=== PATIENT | male | born 1980 | race Caucasian/White ===

== ENCOUNTER 2022-04-27 11:03 | Outpatient (CLI) | payer OTHER, SELFPAY ==
--- NOTE | ~2022-04-27 | XR_ITS ---
XR lumbar spine 2-3V DATE: 04/27/2022 11:24 INDICATION: Back pain TECHNIQUE: AP, lateral, coned lateral lumbosacral views COMPARISON: None FINDINGS: Normal alignment of the lumbar spine. No fracture or bone destruction is evident. The inclu ded lower thoracic and lumbar pedicles are intact. No spondylolisthesis. There is multilevel degenerative disc disease, moderately severe at L2-3, moderate at the remaining l umbar interspaces. L5-S1 interspace is relatively well-preserved. The sacroiliac joints are intact. IMPRESSION: Multilevel degenerative disc disease, most pronounced at L2-3 Reviewed, dictated and finalized at location B.
[2022-04-27 11:22] LABS: Basophils Percent Auto 0.5 % (0.2-1.2); Eosinophils Absolute Auto 0.1 K/mm3 (0-0.3); Eosinophils Percent Auto 0.8 % (0-4.4); Hematocrit 43.1 % (42.0-52.0); Hemoglobin 14.5 g/dL (14.0-18.0); Immature Granulocyte Absolute 0.01 K/mm3 (0.00-0.031); Immature Granulocyte Percent A 0.2 % (0-0.5); Lymphocytes Absolute Auto 0.77 K/mm3 (0.9-3.2); Mean Corpuscular HGB Conc 33.6 g/dl (32-36); Mean Corpuscular Hemoglobin 29.9 pg (26-34); Mean Corpuscular Volume 88.9 fl (80-100); Mean Platelet Volume 8.9 fl (7.4-10.4); Monocytes Absolute Auto 0.4 K/mm3 (0.1-0.6); Monocytes Percent Auto 6.4 % (2.6-8.5); Neutrophils Absolute Auto 4.7 K/mm3 (1.3-6.7); Neutrophils Percent Auto 79.1 % (45.5-73.1); Platelet Count Result 182 k/mm3 (150-375); Red Blood Count 4.85 M/mm3 (4.6-6.20); Red Cell Distribution Width 13.6 % (11.5-14.5); White Blood Count 5.9 K/mm3 (4.5-10.0)
[2022-04-27 11:34] LABS: Alanine Aminotransferase 42 U/L (6-50); Albumin Level 5.1 g/dL (3.5-5.1); Alkaline Phosphatase 76 U/L (38-126); Anion Gap 7 mmol/L (8-16); Aspartate Amino Transferase 54 U/L (17-59); Bilirubin,Total 0.3 mg/dL (0.2-1.3); Blood Urea Nitrogen 13 mg/dL (9-20); Calcium 9.4 mg/dL (8.4-10.2); Carbon Dioxide 26 mmol/L (22-30); Chloride 109 mmol/L (98-107); Cholesterol 253 mg/dL (0-200); Estimated Glomerular Filt Rate > 60; Glucose 107 mg/dL (65-110); HDL Direct 66 mg/dL; Potassium 4.1 mmol/L (3.4-5.0); Sodium 142 mmol/L (137-145); Triglycerides 398 mg/dL (<150)
[2022-04-27 11:44] LABS: LDL Cholesterol Direct 102 mg/dL
[2022-04-27 12:13] LABS: Vitamin D 25 Hydroxy 37.3 ng/mL
== END 2022-04-27 11:04 | disposition home or self-care (01) ==
LOC: ANHLAB 11:05
PROVIDERS: PCP Internal Medicine; Visit Provider Clinical Nurse Specialist
DX: M54.9 Dorsalgia, unspecified (principal); I10 Essential (primary) hypertension; E78.00 Pure hypercholesterolemia, unspecified; F41.9 Anxiety disorder, unspecified; E55.9 Vitamin D deficiency, unspecified
CPT/HCPCS: 36415; 72100; 80053; 80061; 82306; 84443; 85025

== ENCOUNTER 2022-05-17 10:00 | Outpatient (RCR) | payer OTHER, SELFPAY ==
--- NOTE | 2022-05-17 11:15 | PTOPEVAL ---
PHYSICAL THERAPY INITIAL EVALUATION. Thank you for referring Elton Penaloza to [facility].? The patient is scheduled to be seen for therapy? 2x/week for 4 weeks. Please review, sign, date and return this plan of care SEBASTIAN. I agree with and certify that the following plan of care is medically necessary. Referring Physician Date Attending Provider: SILVER Randolph *PT Outpatient Evaluation Start: 05/17/22 Evaluation Information Diagnosis Back pain Onset chronic Subjective Information Pt states he has had back pain Query Text:As Reported By Patient/ since 7th grade. He states a Family doctor told him not to use his back as he gets older. He states his back has been consistent this 7th grade just recently started hurting more to where he sought out additional care. Pt has not tried any treatment prior to now. Pt states he is currently trying to file for disability . Pt states he has no energy to do anything other than sleep. He reports he cannot sit for longer than 20 mins before needing to stand up or move around. Diagnostic Tests X-Rays For This Problem Yes: DDD at L2-L3 Previous Treatments For This Problem no Pain Assessment Lower Back Reported Pain Level 6 Pain Description Radiating,Sharp,Stabbing Radicular Pain Location R buttock Greatest Pain Intensity 9 Pain Aggravating Factors Bending Pain Behaviors None Cervical and Lumbar ROM Lumbar ROM Lumbar Flexion (0-90) 50 Lumbar Flexion Active Floor Lumbar Extension (0-40) 30 Lateral Flexion able to reach lateral knee Query Text:Active Hands to: joint line on R, 2 in above on L Lateral Rotation Right (0-45) 45 Lateral Rotation Left (0-45) 45 Lumbar ROM 75% of Normal Lumbar Comments Erect posture from foward flexion, pt demonstrates L rotation during motion Lower Extremity Range of Motion General Lower Extremity Range of Motion WFL/Left,WFL/Right Lower Extremity Muscle Strength Testing Gross Lower Extremity Strength srinivas hip flexion 4+/5 srinivas hip abduction 4+/5 srinivas knee flexion/extension 5/5 Muscle Length Testing Pir
--- NOTE | 2022-05-25 12:27 | PCPTNOTE ---
Patient no showed to appointment this date. Patient called and voicemail left.
--- NOTE | 2022-05-30 08:57 | PCPTNOTE ---
Patient no showed to appointment this date. Called and spoke with patient who states he does not have a working car at this time to make appointments. Patient reports he has an MRI in May and does not want to waste his time at therapy. Patient agreed to be discharged and discharge note sent to doctor due to patient no wanting to continues.
--- NOTE | 2022-05-30 13:27 | PCPTNOTE ---
Attending Provider: SILVER Randolph Patient:Elton Penaloza Date of :1980 PHYSICAL THERAPY DISCHARGE SUMMARY Patient no showed his appointment today for the second time. He was called and he states he did not want to waste his time with therapy he is getting a MRI later this month and wants to see what it says. He would like to be discharged from skilled therapy services at this time. Patient?s initial visit was on 05/17/2022 10:00 and he had a total of 1 visits. Thank you for referring this patient to [facility]. Please review, sign, date and return this discharge summary SEBASTIAN. I have been updated about the patient's current status and I agree with discharge from the above service at this time. Referring Physician Date
== END 2022-05-30 12:01 | disposition home or self-care (01) ==
LOC: ANHGOSHPT 10:00
PROVIDERS: PCP Internal Medicine; Visit Provider Clinical Nurse Specialist
DX: M54.9 Dorsalgia, unspecified (principal)
CPT/HCPCS: 97112; 97140; 97161

== ENCOUNTER 2022-09-13 11:46 | Emergency (ER) | payer OTHER, SELFPAY ==
[2022-09-13 11:47] VITALS: BP 200/110; PULSE 104; RESP 16; TEMP 36.9; O2SAT 100
--- NOTE | 2022-09-13 12:15 | ED.ANIMALBIT ---
HPI - Animal Bite General Chief Complaint: Animal Bite Stated Complaint: dog bite Time Seen by Provider: 09/13/22 12:13 History of Present Illness HPI narrative: Pt presents with dog bite to right hand two days ago. Pt denies fever. Pt not sure of last tetanus. Pt says hand has gotten more swollen and red over the last two days. Animal: dog (rottweiller) Mechanism: bite Location - Extremities: Right: hand Related Data Home Medications Medication Instructions Recorded Confirmed dextroamphetamine-amphetamine 10 10 mg PO DAILY 09/21/20 07/14/22 mg tablet (Adderall) Allergies Allergy/AdvReac Type Severity Reaction Status Date / Time No Known Allergies Allergy Verified 09/13/22 11:49 Review of Systems Review of Systems: All systems reviewed & are unremarkable except as noted in HPI and below PMFSH Past Medical History Medical History Generalized hyperhidrosis Hypercholesterolemia Hypertension Surgical History Surgical History H/O removal of cyst 2006 Family History Family History Mother Patient's mother is in good health Father Patient's father is in good health Grandparent Breast cancer Lung cancer Social History Social History (Updated 07/14/22 @ 11:38 by Dipti North CMA) Smoking packs per day: 0.75 Smoking cigarettes per day: 15.0 Smoking status: Current every day smoker Alcohol intake: current Alcohol use details: Occasionally Exam Const: General: healthy appearing Nutritional Appearance: well nourished Orientation/consciousness: patient oriented x3 Limitations: no limitations Resp: Effort & Inspection: normal respiratory effort Auscultation: clear to auscultation bilaterally GI: GI Palp: Yes Soft to palpation Auscultation: normal bowel sounds Skin: Other: healing wound over MCP right 2nd with mild selling and erythema no drainage Neuro: General: patient oriented x3 Cranial nerves: Yes Nystagmus not present Speech: normal speech Extrem: General: normal to inspection and no clubbing, cyanosis or edema Other: see above Psych: Mental Status: mental status grossly normal Affect: normal affect Attitude: cooperative Course Vital Signs Vital signs: Vital Signs Temperature 98.5 F 11/16/22 11:47 Pulse Rate 104 H 09/13/22 11:47 Respiratory Rate 16 09/13/22 11:47 Blood Pressure 200/110 H 09/13/22 11:47 Pulse Oximetry 100 09/13/22 11:47 Temperature 98.5 F 09/13/22 11:47 Pulse Rate 104 H 09/13/22 11:47 Respiratory Rate 16 09/13/22 11:47 Blood Pressure 200/110 H 09/13/22 11:47 Pulse Oximetry 100 09/13/22 11:47 Discharge Plan Discharge Clinical Impression: Dog bite of dorsum of hand Patient Disposition: Home, Self-Care Condition: Stable Instructions: Antibiotic Form, Animal Bite (ED) Prescriptions: New amoxicillin-pot clavulanate 875-125 mg tablet 1 tablet PO Q12H Qty: 20 0RF No Action omeprazole 20 mg capsule,delayed release(DR/EC) 20 mg PO DAILY Qty: 90 0RF dextroamphetamine-amphetamine [Adderall] 10 mg tablet 10 mg PO DAILY Rx Instructions: Take 15mg in AM and 10 in PM sildenafil 50 mg tablet 50 mg PO DAILY PRN (Reason: sexual activity) Qty: 30 3RF Rx Instructions: administer 30 minutes to 4 hours before activity. Do not exceed 100 mg in a 24 hour period. sertraline 100 mg tablet See Rx Instructions .ROUTE .COMPLEX Qty: 90 0RF Dose Instruction: TAKE 1 TABLET BY MOUTH DAILY Rx Instructions: TAKE 1 TABLET BY MOUTH DAILY losartan-hydrochlorothiazide 100-12.5 mg tablet See Rx Instructions .ROUTE .COMPLEX Qty: 30 0RF Dose Instruction: TAKE 1 TABLET BY MOUTH EVERY DAYNEED LABS DONE FOR FURTHER REFILLS Rx Instructions: TAKE 1 TABLET BY MOUTH EVERY DAY
[2022-09-13] MEDS: TETANUS,DIPHTHERIA,AC PERTUSSIS ADULT (0.5 ML) BOOSTRIX IM (12:39)
== END 2022-09-13 12:42 | disposition home or self-care (01) ==
PROVIDERS: Emergency Provider Emergency Medicine; PCP Internal Medicine
DX: S61.451A Open bite of right hand, initial encounter (principal); W54.0XXA Bitten by dog, initial encounter; F17.210 Nicotine dependence, cigarettes, uncomplicated; Z23 Encounter for immunization
CPT/HCPCS: 90471; 90715; 99283

== ENCOUNTER 2023-03-16 09:33 | Emergency (ER) | payer OTHER, SELFPAY ==
[2023-03-16] VITALS (13 sets, daily range): BP systolic 116–140; BP diastolic 78–97; PULSE 58–84; RESP 13–20; TEMP 36.7; O2SAT 94–100
--- NOTE | ~2023-03-16 | XR_ITS ---
EXAMINATION: XR chest 2V 03/16/2023 10:20 INDICATION: Dyspnea. Right-sided chest pain. PROCEDURE: 2 view chest COMPARISON: 08/15/2015 FINDINGS: The lungs are clear. The cardiomediastinal silhouette is within normal limits. There are no pleural effusions. There is no pneumothorax suspected. IMPRESSION: 1: NO ACUTE CARDIOPULMONARY DISEASE. Reviewed, dictated and finalized at location B.
--- NOTE | 2023-03-16 09:48 | ECG_ITS ---
Measurements Intervals [place] Rate: 71 P: 79 OR: 149 QRS: 23 QRSD: 94 T: 22 QT: 378 QTc: 411 Interpretive Statements SINUS RHYTHM NORMAL ECG NO PREVIOUS ECG AVAILABLE FOR COMPARISON Electronically Signed On 03-16-2023 11:28:17 CDT by Gallo Wright D.O.
[2023-03-16 10:23] LABS: Basophils Percent Auto 0.6 % (0.2-1.2); Eosinophils Absolute Auto 0.1 K/mm3 (0-0.3); Eosinophils Percent Auto 1.9 % (0-4.4); Hematocrit 30.7 % (42.0-52.0); Hemoglobin 8.6 g/dL (14.0-18.0); Immature Granulocyte Absolute 0.02 K/mm3 (0.00-0.031); Immature Granulocyte Percent A 0.4 % (0-0.5); Lymphocytes Absolute Auto 1.37 K/mm3 (0.9-3.2); Lymphocytes Percent Auto 26.2 % (18.3-44.2); Mean Corpuscular Hemoglobin 19.8 pg (26-34); Mean Corpuscular Volume 70.6 fl (80-100); Mean Platelet Volume 9.3 fl (7.4-10.4); Monocytes Absolute Auto 0.4 K/mm3 (0.1-0.6); Monocytes Percent Auto 7.5 % (2.6-8.5); Neutrophils Absolute Auto 3.3 K/mm3 (1.3-6.7); Neutrophils Percent Auto 63.4 % (45.5-73.1); Platelet Count Result 197 k/mm3 (150-375); Red Blood Count 4.35 M/mm3 (4.6-6.20); Red Cell Distribution Width 19.6 % (11.5-14.5); White Blood Count 5.2 K/mm3 (4.5-10.0)
[2023-03-16 10:44] LABS: Troponin I < 0.012 ng/mL (0.000-0.034)
[2023-03-16 10:49] LABS: Platelet Estimate Adequate (Adequate)
[2023-03-16 10:56] LABS: Anisocytosis 1+ (NORMAL)
[2023-03-16 10:57] LABS: Hypochromasia 1+ (NORMAL); Schistocytes None Seen (NORMAL)
--- NOTE | 2023-03-16 11:00 | ED.GENADULT ---
HPI - General Adult General Chief complaint: Shortness of Breath/Dyspnea Stated complaint: cough, chest pain Time Seen by Provider: 03/16/23 10:26 History of Present Illness HPI narrative: Patient is a 42-year-old male with a history of smoking and hypertension here due to chest pains, cough, difficulty breathing for the past 2 months. Patient believed it was a chest cold at first because he has had a productive cough of white sputum. The symptoms have persisted, he contacted his primary care doctor to make an appointment but he is unable to get into Sunday and he did not want a wait until then. He denies having history of COPD or asthma. No fevers, chills, leg swelling, weakness or lightheadedness, syncope. Related Data Home Medications Medication Instructions Recorded Confirmed dextroamphetamine-amphetamine 10 10 mg PO DAILY 09/21/20 07/14/22 mg tablet (Adderall) Allergies Allergy/AdvReac Type Severity Reaction Status Date / Time No Known Allergies Allergy Verified 09/13/22 11:49 Review of Systems Review of Systems: Gen.: Denies fevers or chills Eyes: Denies eye pain or visual change ENT: Denies congestion Respiratory: Reports cough and shortness of breath CV: Reports chest pain GI: Denies abdominal pain nausea, emesis or diarrhea denies burning, urgency, frequency or hematuria Musculoskeletal: Denies back pain or muscle pain Neuro: Denies numbness, tingling, weakness or focal weakness Skin: Denies rash Except as documented, all other systems reviewed and negative [facility] Past Medical History Medical History Generalized hyperhidrosis Hypercholesterolemia Hypertension Surgical History Surgical History H/O removal of cyst 2006 Family History Family History Mother Patient's mother is in good health Father Patient's father is in good health Grandparent Breast cancer Lung cancer Social History Social History (Updated 07/14/22 @ 11:38 by Dipti Norht CMA) Smoking packs per day: 0.75 Smoking cigarettes per day: 15.0 Smoking status: Current every day smoker Alcohol intake: current Alcohol use details: Occasionally Exam Narrative: APPEARANCE: Well appearing, no pain in distress, well-nourished. Head: Normocephalic and atraumatic. EYES: PERRLA/EOMI, conjunctivae clear NOSE: No nasal drainage EARS: External ear normal in appearance THROAT: Oropharynx is clear. Mucous membranes are moist. NECK: Supple. No adenopathy, no masses. RESPIRATORY: Inspiratory and expiratory wheezing in bilateral lower lobes. Airway patent, respirations nonlabored. Clear to auscultation bilaterally, no rales, rhonchi, wheezing. CARDIOVASCULAR: Regular rate and rhythm without murmurs, rubs, or gallops. : There are numerous external hemorrhoids on exam stools not grossly bloody ABDOMINAL: Normoactive bowel sounds. Soft, nontender, nondistended. No rebound tenderness or guarding. MUSCULOSKELETAL: Reproducible chest pain along the left anterior chest wall. Extremities are warm and well-perfused. Moves all extremities well. No edema. NEURO: Normal speech. No focal neurologic deficits. SKIN: Skin is warm and dry. No rashes. PSYCHIATRIC: Normal affect/mood.. Course Vital Signs Vital signs: Vital Signs Temperature 98.0 F 03/16/23 09:41 Pulse Rate 76 03/16/23 09:41 Respiratory Rate 16 03/16/23 09:41 Blood Pressure 116/97 H 03/16/23 09:41 Pulse Oximetry 95 03/16/23 09:41 Oxygen Delivery Room Air 03/16/23 09:41 Temperature 98.0 F 03/16/23 09:41 Pulse Rate 71 03/16/23 11:30 Respiratory Rate 20 03/16/23 10:45 Blood Pressure 140/78 03/16/23 10:01 Pulse Oximetry 95 03/16/23 11:30 Oxygen Delivery Room Air 03/16/23 09:41 Medical Decision Making [facility] Narrative Medica
[2023-03-16] MEDS: IPRATROPIUM BR 0.02% INH SOLN 0.5 MG/2.5 ML VIAL INHALATION (11:07)
[2023-03-16] MEDS: LEVALBUTEROL NEB 1.25 MG/3 ML INHALATION (11:08)
[2023-03-16 11:34] LABS: Alanine Aminotransferase 22 U/L (6-50); Albumin Level 4.4 g/dL (3.5-5.1); Alkaline Phosphatase 68 U/L (38-126); Anion Gap 7 mmol/L (8-16); Aspartate Amino Transferase 45 U/L (17-59); Bilirubin,Total 0.6 mg/dL (0.2-1.3); Blood Urea Nitrogen 18 mg/dL (9-20); Calcium 8.9 mg/dL (8.4-10.2); Carbon Dioxide 24 mmol/L (22-30); Chloride 105 mmol/L (98-107); Estimated CRCL calculation 108 ml/min; Estimated Glomerular Filt Rate > 60; Glucose 98 mg/dL (65-110); Potassium 4.3 mmol/L (3.4-5.0); Sodium 136 mmol/L (137-145)
[2023-03-16 11:40] LABS: D Dimer 0.37 ug/mL (<0.48)
== END 2023-03-16 12:17 | disposition home or self-care (01) ==
PROVIDERS: Emergency Medicine; Emergency Provider Physician Assistant; PCP Internal Medicine
DX: D64.9 Anemia, unspecified (principal); R06.2 Wheezing; I10 Essential (primary) hypertension; E78.00 Pure hypercholesterolemia, unspecified; F17.210 Nicotine dependence, cigarettes, uncomplicated
CPT/HCPCS: 36415; 71046; 80053; 84484; 85025; 85380; 93005; 94640; 99284

== ENCOUNTER 2023-03-22 11:58 | Outpatient (CLI) | payer OTHER, SELFPAY ==
--- NOTE | ~2023-03-22 | CT_ITS ---
EXAMINATION: CTA chest PE protocol DATE: 03/22/2023 12:32 CDT INDICATION: Chest pain TECHNIQUE: Computed tomographic angiography (CTA) of the chest was performed with 100 mL Omnipaque-35 0 intravenous contrast. The dose-length product was 1761.15 mGy-cm. Maximum intensity projection 3D-r econstructions of the aorta and other arteries were constructed by the technologist on a separate wor kstation. Automated exposure control and iterative reconstruction technique were employed. COMPARISON: None. FINDINGS: There are small filling defects in the right upper, no focal airspace consolidation. No pne umothorax. No endobronchial lesions. No suspicious pulmonary nodules or masses. Left upper and lower lobe segmental and subsegmental pulmonary arteries, consistent with pulmonary embolism, small thrombu s burden. Heart size normal. No thoracic lymphadenopathy. No significant pleural or pericardial effus ion. IMPRESSION: 1. Small bilateral segmental and subsegmental pulmonary embolism, small thrombus burden. Reviewed, dictated and finalized at location L. IMPRESSION: 1. Small bilateral segmental and subsegmental pulmonary embolism, small thrombu s burden.
== END 2023-03-22 11:59 | disposition home or self-care (01) ==
PROVIDERS: PCP Internal Medicine; Visit Provider Nurse Practitioner
DX: I26.94 Multiple subsegmental thrombotic pulmonary emboli without acute cor pulmonale (principal)
CPT/HCPCS: 71275; Q9967

== ENCOUNTER 2023-03-23 11:20 | Inpatient (IN) | payer OTHER, SELFPAY ==
[2023-03-23] VITALS (19 sets, daily range): BP systolic 123–148; BP diastolic 68–86; PULSE 64–105; RESP 16–44; TEMP 36.2–36.6; O2SAT 93–100; BMI 31.4
--- NOTE | ~2023-03-23 | US_ITS ---
EXAMINATION: US venous doppler [facility] DATE: 03/23/2023 23:20 INDICATION: Chest pain. Acute pulmonary emboli. TECHNIQUE: Grayscale ultrasound images without and with compression and Doppler ultrasound images of the bilateral lower extremity veins were obtained. COMPARISON: None. FINDINGS: The visualized portions of right common femoral vein, profunda (deep) femoral vein, femoral vein, pop liteal vein, peroneal veins, posterior tibial veins, and greater saphenous vein outflow are patent. The visualized portions of left common femoral vein, profunda femoral vein, femoral vein, popliteal v ein, peroneal veins, posterior tibial veins, and greater saphenous vein outflow are patent. IMPRESSION: 1. No deep venous thrombosis. Reviewed, dictated and finalized at location A.
--- NOTE | 2023-03-23 11:31 | ECG_ITS ---
Measurements Intervals [place] Rate: 77 P: 68 NM: 155 QRS: 14 QRSD: 86 T: 22 QT: 341 QTc: 387 Interpretive Statements SINUS RHYTHM BASELINE ARTIFACT- I, II, V4-V6 NORMAL ECG COMPARED TO ECG 03/16/2023 10:03:04 NO SIGNIFICANT CHANGES Electronically Signed On 03-23-2023 12:32:59 CDT by Gallo Wright D.O.
--- NOTE | 2023-03-23 12:21 | ED.RECABL ---
HPI - Recheck/Abnormal Lab/Rx General Chief Complaint: Recheck/Abnormal Lab/Rx <Swati Clark PA-C - Last Filed: 03/23/23 19:56> Stated Complaint: blood clot in lung <ANIKET Gonzáles Last Filed: 03/23/23 19:56> Time Seen by Provider: 03/23/23 12:10 <ANIKET Gonzáles Last Filed: 03/23/23 19:56> Source: patient and old records reviewed <ANIKET Gonzáles Last Filed: 03/23/23 19:56> Mode of arrival: ambulatory <ANIKET Gonzáles Last Filed: 03/23/23 19:56> Limitations: no limitations <ANIKET Gonzáles Last Filed: 03/23/23 19:56> History of Present Illness HPI narrative: Patient is a 42-year-old male who presents to the ED with report of abnormal CT. Patient reports having issues with intermittent shortness of breath, worse with exertion and movements for the last 1 year. He also reports having daily chest pain, also worse with exertion/coughing for the last few months. He was seen in the ED here on 03/16 and pain was thought to be related to a COPD exacerbation. Symptoms improved with breathing treatments. Patient followed up with his primary care doctor who sent him for an outpatient CTA of the chest yesterday. Imaging resulted showing bilateral PEs. Patient was then referred here for further evaluation. Patient denies Hx of PEs or other blood clots. Denies pain or swelling in lower extremities. Denies recent immobilization, long distance travel, surgeries. Denies recent cough or cold symptoms, previous COVID. Denies family history of blood clots. <ANIKET Gonzáles Last Filed: 03/23/23 19:56> Related Data Home Medications: Home Medications Medication Instructions Recorded Confirmed dextroamphetamine-amphetamine 10 10 mg PO DAILY 09/21/20 03/23/23 mg tablet (Adderall) buspirone 10 mg tablet 10 mg PO DAILY 03/22/23 03/23/23 albuterol sulfate 90 mcg/actuation 1 inh inhalation QID PRN Dyspnea 03/23/23 03/23/23 aerosol inhaler losartan 100 12.5 - 100 tablet PO DAILY 03/23/23 03/23/23 mg-hydrochlorothiazide 12.5 mg tablet <Swati Clark PA-C - Last Filed: 03/23/23 19:56> Allergies/Adverse Reactions: Allergies Allergy/AdvReac Type Severity Reaction Status Date / Time No Known Allergies Allergy Verified 03/22/23 10:37 <Swati Clark PA-C - Last Filed: 03/23/23 19:56> Review of Systems Review of Systems: CONSTITUTIONAL: Denies fever, chills, or sweats. EYES: Denies visual changes, redness, or discharge. ENT: Denies rhinorrhea, congestion, sore throat. CARDIOVASCULAR: See HPI. RESPIRATORY: See HPI. GASTROINTESTINAL: Denies abdominal pain, nausea, vomiting, or diarrhea. MUSCULOSKELETAL: See HPI. NEUROLOGIC: Denies headache, numbness, or weakness. <Swati Clark PA-C - Last Filed: 03/23/23 19:56> All systems reviewed & are unremarkable except as noted in HPI and below <Swati Clark PA-C - Last Filed: 03/23/23 19:56> [facility] Past Medical History Medical History: Medical History Chronic GERD Depression with anxiety Generalized hyperhidrosis Hypercholesterolemia Hypertension <Swati Clark PA-C - Last Filed: 03/23/23 19:56> Surgical History Surgical History: Surgical History H/O removal of cyst 2006 S/P hemorrhoidectomy <ANIKET Gonzáles Last Filed: 03/23/23 19:56> Family History Family History: Family History Mother Patient's mother is in good health Father Patient's father is in good health Grandparent Breast cancer Lung cancer <Swati Clark PA-C - Last Filed: 03/23/23 19:56> Social History Social History: Social History Social History: li
[2023-03-23 12:28] LABS: Basophils Percent Auto 0.3 % (0.2-1.2); Eosinophils Absolute Auto 0.1 K/mm3 (0-0.3); Hematocrit 31.4 % (42.0-52.0); Hemoglobin 8.9 g/dL (14.0-18.0); Immature Granulocyte Absolute 0.03 K/mm3 (0.00-0.031); Immature Granulocyte Percent A 0.4 % (0-0.5); Lymphocytes Absolute Auto 1.54 K/mm3 (0.9-3.2); Lymphocytes Percent Auto 22.8 % (18.3-44.2); Mean Corpuscular HGB Conc 28.3 g/dl (32-36); Mean Corpuscular Volume 70.7 fl (80-100); Mean Platelet Volume 8.7 fl (7.4-10.4); Monocytes Absolute Auto 0.4 K/mm3 (0.1-0.6); Monocytes Percent Auto 6.5 % (2.6-8.5); Neutrophils Absolute Auto 4.7 K/mm3 (1.3-6.7); Platelet Count Result 188 k/mm3 (150-375); Red Blood Count 4.44 M/mm3 (4.6-6.20); Red Cell Distribution Width 19.6 % (11.5-14.5); White Blood Count 6.8 K/mm3 (4.5-10.0)
[2023-03-23 12:40] LABS: Prothrombin Time 13.1 Seconds (11.1-14.7)
[2023-03-23 12:41] LABS: Partial Thromboplastin Time 25.2 SECONDS (22.3-36.8)
[2023-03-23 12:44] LABS: Alanine Aminotransferase 26 U/L (6-50); Albumin Level 4.4 g/dL (3.5-5.1); Alkaline Phosphatase 65 U/L (38-126); Anion Gap 7 mmol/L (8-16); Aspartate Amino Transferase 32 U/L (17-59); Bilirubin,Total 0.5 mg/dL (0.2-1.3); Blood Urea Nitrogen 21 mg/dL (9-20); Carbon Dioxide 26 mmol/L (22-30); Chloride 105 mmol/L (98-107); Estimated CRCL calculation 109 ml/min; Estimated Glomerular Filt Rate > 60; Glucose 99 mg/dL (65-110); Potassium 3.9 mmol/L (3.4-5.0); Sodium 138 mmol/L (137-145)
[2023-03-23 12:48] LABS: Anisocytosis 2+ (NORMAL); Hypochromasia 2+ (NORMAL); Microcytosis 1+ (NORMAL); Platelet Estimate Adequate (Adequate)
[2023-03-23 12:49] LABS: Schistocytes None Seen (NORMAL)
[2023-03-23 12:54] LABS: Troponin I < 0.012 ng/mL (0.000-0.034)
--- NOTE | 2023-03-23 13:24 | PM.IMHP ---
H&P: HPI History of Present Illness Date/Time: 03/23/23 13:24 Chief Complaint: Pe as per abnormal CT Narrative: this is a 42-year-old male patient who came to the emergency room with report of an abnormal CT scan. The patient has been using inhalers for intermittent shortness of breath. The patient's shortness of breath was worse with exertion and movement for the last 1 year. The patient also has been having daily chest pain that is worse with coughing and exertion over the last few months. The patient stated that he has not had any recent surgery or recent travel. He has not recently had COVID. The patient was seen in the emergency room here on 03/16 and the pain was thought to be related to COPD exacerbation. Symptoms improved with breathing treatments. The patient has been using his inhalers. His primary care doctor did send him for outpatient CTA Pulmonary yesterday. The patient has had no prior history of any PEs. He has not had any swelling in his lower extremities. His CTA from yesterday was read as small bilateral segmental and subsegmental pulmonary embolism small thrombus burden. the patient has a history of hemorrhoids and stated that his hemorrhoids have been bleeding recently. GI had been consulted from the emergency room. His H&H is 8.9 and 31.4 the present. Platelet count 188. Anemia panel has been performed. Patient appears to have iron deficiency.The patient was given heparin and started on heparin drip. Troponin negative x3. The patient is being admitted to observation status on the date of service of 03/23/2023. Review of Systems Review of Systems: All systems reviewed & are unremarkable except as noted in HPI and below Constitutional: Constitutional: Reports as per HPI and Reports no additional constitutional complaints Eyes: Eyes: Reports as per HPI and Reports no additional eye complaints ENT: Reports system reviewed and no additional complaints, except as documented and Reports Normal hearing present Cardiovascular: Cardiovascular: Reports no additional cardiovascular complaints Respiratory: Respiratory: Reports no additional respiratory complaints and Reports no additional respiratory complaints Gastrointestinal: Gastrointestinal: Reports as per HPI and Reports no additional gastrointestinal complaints Musculoskeletal: Musculoskeletal: Reports no additional musculoskeletal complaints Integumentary/Breasts: Skin/Breast: Reports system reviewed and no additional complaints, except as docu and Reports as per HPI Neurologic: Reports system reviewed and no additional complaints, except as documented, Reports as per HPI and Reports Normal hearing present Psychiatric: Psychiatric: Reports no additional psychiatric complaints and Reports as per HPI Endocrine: Endocrine: Reports no additional endocrine complaints Hematologic/Lymphatic: Hematologic/Lymphatic: Reports no additional hematologic/lymphatic complaints Allergic/Immunologic: Allergic/Immunologic: Reports no additional allergic/immunologic complaints PMFSH Past Medical History Medical History Chronic GERD Depression with anxiety Generalized hyperhidrosis Hypercholesterolemia Hypertension Surgical History Surgical History H/O removal of cyst 2005 S/P hemorrhoidectomy Family History Family History Mother Patient's mother is in good health Father Patient's father is in good health Grandparent Breast cancer Lung cancer Social History Social History (Updated 03/23/23 @ 20:33 by Erin Tinajero NP) Social History: He lives with his kids. he is single and has 4 kids. he works at [employer] . he uses marijuana. He drinks 2 mixed drinks of alcohol and 5 beers a night. He denies any durable power prosecuting attorney for healthcare. Code status full code Smoking pa
[2023-03-23 13:38] LABS: Lactate Dehydrogenase 154 U/L (120-246)
[2023-03-23] MEDS: HEPARIN SODIUM 5,000 UNITS/ML VIAL 7000 UNITS IV PUSH (13:44)
[2023-03-23] MEDS: HEPARIN SOD/D5W 100 UNITS/ML 25,000 UNITS/250 ML BAG 15 UNITS IV CONT (13:44)
[2023-03-23 13:45] LABS: Transferrin 417 mg/dL (206-381)
[2023-03-23 13:49] LABS: Iron 31 ug/dL (49-181)
[2023-03-23 13:59] LABS: Percent Iron Saturation 5 % (20-50)
[2023-03-23 14:25] LABS: Ferritin 6.57 ng/mL (17.9-464)
--- NOTE | 2023-03-23 14:40 | ADMGEN ---
This patient, Elton Penaloza, was admitted to IMU Room 202-01. Patient/family oriented to hospital policies and general routines including ID bracelet, bed and alarms, visiting hours, pain management, procedures, bathroom and other care routines, personal items, smoking policy, room service/diet, and visiting hours. Information on how to activate the Rapid Response Team has been discussed. Patient/Family are encouraged to report perceived risks to care and to ask questions if they do not understand what they are told or what they should do.
[2023-03-23 14:45] LABS: Folic Acid 8.4 ng/mL (2.76->20)
[2023-03-23 16:10] LABS: Troponin I < 0.012 ng/mL (0.000-0.034)
--- NOTE | 2023-03-23 17:19 | WPDGICN ---
Assessment and Plan Assessment and plan (1) POLA (iron deficiency anemia): Code(s): D50.9 - Iron deficiency anemia, unspecified Status: Acute Assessment and Plan: Patient has rather significant microcytic iron deficiency anemia. Iron replacement will be required. I suspect this is related to hemorrhoidal bleeding. Other etiologies cannot be excluded. I would recommend initial treatment be directed towards is life-threatening pulmonary emboli. Particularly since stool was found to be Hemoccult negative. As he is anticoagulated will will need to watch for any signs of additional hemorrhoidal bleeding. When it is stable I would suggest both colonoscopy an EGD to exclude any additional lesions. Given the degree of his bleeding from hemorrhoids likely he will need surgical resection. surgery consult at some point may be indicated. (2) Pulmonary embolism: Qualifiers: Acute cor pulmonale presence: without acute cor pulmonale Chronicity: acute Pulmonary embolism type: unspecified Qualified Code(s): I26.99 - Other pulmonary embolism without acute cor pulmonale Code(s): I26.99 - Other pulmonary embolism without acute cor pulmonale Status: Acute Assessment and Plan: Patient likely will need anti coagulation. Workup to evaluate for potential etiology of his blood clots. (3) Bleeding hemorrhoids: Code(s): K64.9 - Unspecified hemorrhoids Status: Acute Assessment and Plan: Patient with hemorrhoidal bleeding. Plan for stool softeners. We will start Metamucil daily. Because of this significant ongoing bleeding even before anticoagulation he will require surgical therapy at some. Colonoscopy an EGD will be performed electively. GI Consult Note Consult date/time: 03/23/23 17:19 Reason for consult: iron deficiency anemia HPI: Elton Penaloza is a 42 year old male I am asked to see at the request of the emergency room because patient has iron deficiency anemia and pulmonary embolus. Patient reports having been short of breath for the last year. He has dyspnea on exertion. Differently difficulty climbing stairs. He developed some chest pain. The breathing appeared worsened and for this reason he went to the emergency room last Sunday. Initially thought to have COPD. On follow-up with primary care service a CT scan of the chest was performed and confirmed multiple pulmonary emboli in both lungs. Patient denies any blood clots in his legs. He has no known difficulty with clotting. States he has had hemorrhoids. Many years ago had hemorrhoid surgery. He has bright red blood per rectum associated with almost all bowel movements. In the emergency room stool Hemoccult was performed found to be negative. Patient denies any abdominal pain. Laboratory indices suggest microcytic anemia. Iron indices consistent with iron deficiency anemia. Review of Systems Review of Systems: Review of systems noncontributory. [facility] Past Medical History Medical History Chronic GERD Depression with anxiety Generalized hyperhidrosis Hypercholesterolemia Hypertension Surgical History Surgical History H/O removal of cyst 2005 S/P hemorrhoidectomy Family History Family History Mother Patient's mother is in good health Father Patient's father is in good health Grandparent Breast cancer Lung cancer Social History Social History (Updated 03/23/23 @ 13:28 by Erin Tinajero NP) Social History: lives with kids . single 4 kids. grazyna askew . [place] alchol 2 mixed and 5 beers a night Smoking packs per day: 1 Smoking cigarettes per day: 20.0 Smoking status: Current every day smoker Alcohol intake: current Drinks per week: 30 Alcohol use details: Occasionally Substance use: current Substance
[2023-03-23 19:23] LABS: Troponin I < 0.012 ng/mL (0.000-0.034)
[2023-03-23 19:40] LABS: Partial Thromboplastin Time 68.5 SECONDS (22.3-36.8)
[2023-03-23] MEDS: HEPARIN SODIUM 5,000 UNITS/ML VIAL 3500 UNITS IV PUSH (19:48)
[2023-03-23] MEDS: MELATONIN 5 MG TABLET PO (21:16)
[2023-03-23] MEDS: ACETAMINOPHEN 325 MG TABLET 650 MG PO (21:16)
[2023-03-23 22:23] LABS: Hematocrit 30.9 % (42.0-52.0); Hemoglobin 8.9 g/dL (14.0-18.0)
[2023-03-23 23:53] LABS: Glucose Point of Care 109 mg/dl (65-105)
[2023-03-24] VITALS (12 sets, daily range): BP systolic 124–149; BP diastolic 72–99; PULSE 51–87; RESP 18–24; TEMP 36.1–36.9; O2SAT 95–100
--- NOTE | 2023-03-24 | ECHO_ITS ---
Patient Info Name: Elton Penaloza Age: 42 years : 1980 Gender: Male Ht: 72 in Wt: 240 lbs BSA: 2.38 m2 HR: 94 bpm BP: 148 / 88 mmHg Technical Quality: Fair Exam Date: 03/24/2023 7:04 AM Exam Location: [facility] Patient Status: Inpatient Admit Date: 03/23/2023 Staff Ordering Physician: Erin Tinajero NP Stone Finisher: Nazia Mueller RDCS Attending Provider: Desmond Ruiz MD Referring Physician: Lior CHAVEZ; Exam Type: CA echo dop color flow w con Study Info Indications I26.90 - Septic pulmonary embolism without acute cor pulmonale Complete two-dimensional, color flow and Doppler transthoracic echocardiogram is performed with contrast to opacify the left ventricle and to improve the deliniation of the left ventricle endocardial borders. Contrast/Agitated Saline Contrast/Ag. Saline: Definity Amount: 4.00 ml Administered By: Nazia Mueller [facility] Summary 1. Definity contrast administered improved wall motion interpretation. 2. Left ventricular chamber dimension is moderately enlarged. 3. Left ventricular systolic function is normal, estimated at 55-60%. 4. There is mild concentric increased left ventricular wall thickness. 5. The left ventricular diastolic function is normal. 6. E/e' 5 is not elevated. 7. Left atrial chamber dimension is mildly enlarged. 8. Right atrial chamber dimension is mildly enlarged. 9. There is trace mitral valve regurgitation. 10. There is trace tricuspid valve regurgitation. Left Ventricle Definity contrast administered improved wall motion interpretation. E/e' 5 is not elevated. Left ventricular chamber dimension is moderately enlarged. Left ventricular systolic function is normal, estimated at 55-60%. There is mild concentric increased left ventricular wall thickness. The left ventricular diastolic function is normal. Right Ventricle Right ventricular systolic function is normal based on a normal TAPSE 2.6 cm. Right ventricular chamber dimension is not well visualized. Left Atria Left atrial chamber dimension is mildly enlarged. Right Atria Right atrial chamber dimension is mildly enlarged. Aortic Valve The aortic valve is trileaflet. There is no aortic valve stenosis. There is no aortic valve regurgitation. Pulmonic Valve There is no pulmonic regurgitation. Mitral Valve There is no mitral valve stenosis. There is trace mitral valve regurgitation. Tricuspid Valve RVSP is not calculated due to an inadequate TR jet. There is trace tricuspid valve regurgitation. Pericardium/Pleural There is no pericardial effusion. Inferior Vena Cava Normal inferior vena cava with >50% collapse upon inspiration consistent with normal right atrial pressure, 5 mmHg. Aorta The aortic root size at the sinus of Valsalva is normal. Left Ventricular Outflow Tract Name Value Normal LVOT 2D LVOT Diameter 2.50 cm LVOT Doppler LVOT Peak Gradient 3 mmHg LVOT Mean Gradient 2 mmHg LVOT VTI 20.28 cm LVOT VTI/AV VTI Ratio 0.91 LVOT Stroke Volume 99.48 ml LVOT C
[2023-03-24 02:04] LABS: Hematocrit 30.3 % (42.0-52.0); Hemoglobin 8.7 g/dL (14.0-18.0); Mean Corpuscular HGB Conc 28.7 g/dl (32-36); Mean Corpuscular Hemoglobin 20.1 pg (26-34); Mean Platelet Volume 8.7 fl (7.4-10.4); Platelet Count Result 182 k/mm3 (150-375); Red Blood Count 4.33 M/mm3 (4.6-6.20); Red Cell Distribution Width 19.5 % (11.5-14.5); White Blood Count 9.1 K/mm3 (4.5-10.0)
[2023-03-24 02:15] LABS: Lactic Acid Reflex 0.7 mmol/L (0.7-2.0)
[2023-03-24 02:18] LABS: Alanine Aminotransferase 23 U/L (6-50); Albumin Level 4.1 g/dL (3.5-5.1); Alkaline Phosphatase 67 U/L (38-126); Anion Gap 2 mmol/L (8-16); Aspartate Amino Transferase 27 U/L (17-59); Bilirubin,Total 0.4 mg/dL (0.2-1.3); Blood Urea Nitrogen 21 mg/dL (9-20); Calcium 8.9 mg/dL (8.4-10.2); Carbon Dioxide 29 mmol/L (22-30); Chloride 103 mmol/L (98-107); Estimated CRCL calculation 109 ml/min; Estimated Glomerular Filt Rate > 60; Glucose 102 mg/dL (65-110); Magnesium 2.5 mg/dL (1.6-2.3); Partial Thromboplastin Time 99.5 SECONDS (22.3-36.8); Potassium 4.1 mmol/L (3.4-5.0); Sodium 134 mmol/L (137-145)
[2023-03-24 02:28] LABS: Band Neutrophils Percent 2 % (0-6); Basophils Absolute Manual 0.18 K/mm3 (0.0-0.1); Basophils Percent Manual 2 % (0-1); Eosinophils Absolute Manual 0.18 K/mm3 (0.02-0.5); Eosinophils Percent Manual 2 % (0-4); Lymphocytes Absolute Manual 1.36 K/mm3 (1.1-4.5); Monocytes Absolute Manual 0.09 K/mm3 (0.1-0.90); Monocytes Percent Manual 1 % (3-9); Neutrophils Absolute Manual 7.28 K/mm3 (1.3-6.7); Neutrophils Percent Manual 78 % (46-73); Platelet Estimate Adequate (Adequate); Total Cells Counted 100
[2023-03-24 02:29] LABS: Macrocytosis 1+ (NORMAL)
[2023-03-24 02:30] LABS: Anisocytosis 2+ (NORMAL); Microcytosis 2+ (NORMAL); Schistocytes None Seen (NORMAL)
[2023-03-24 02:31] LABS: Hypochromasia 1+ (NORMAL)
[2023-03-24] MEDS: HEPARIN SOD/D5W 100 UNITS/ML 25,000 UNITS/250 ML BAG 17 UNITS IV CONT (04:23)
[2023-03-24 06:05] LABS: Glucose Point of Care 104 mg/dl (65-105)
[2023-03-24] MEDS: PERFLUTREN LIPID MICROSPHERES 1.5 ML VIAL DILUTED TO 10 ML TOTAL VOLUME IV PUSH (07:40)
--- NOTE | 2023-03-24 09:39 | WPDGIPROGNO ---
Progress Note: A&P Assessment and Plan (1) Pulmonary embolism: Qualifiers: Acute cor pulmonale presence: without acute cor pulmonale Chronicity: acute Pulmonary embolism type: unspecified Qualified Code(s): I26.99 - Other pulmonary embolism without acute cor pulmonale Code(s): I26.99 - Other pulmonary embolism without acute cor pulmonale Status: Acute Assessment and Plan: Pulmonary embolism bilaterally described on imaging study. Perhaps this accounts for his shortness of breath. Patient now on heparin drip. Etiology for PE uncertain. Venous Doppler of the legs is negative. (2) POLA (iron deficiency anemia): Code(s): D50.9 - Iron deficiency anemia, unspecified Status: Acute Assessment and Plan: Patient has iron deficiency anemia. Presumably from bleeding from his hemorrhoids. Will plan colonoscopy and EGD. Heparin will need to be held briefly to accomplish this tomorrow. Patient likely would benefit from hemorrhoidectomy if no other source for anemia identified. Will try to accomplish endoscopy before long-term oral anticoagulation started. (3) Bleeding hemorrhoids: Code(s): K64.9 - Unspecified hemorrhoids Status: Acute Assessment and Plan: Patient identified as having ongoing daily bleeding from his hemorrhoids. Stool is Hemoccult negative. Because of iron deficiency anemia colonoscopy an EGD will be performed. Ultimate surgical therapy of hemorrhoids may be required. Subjective Date/time seen: 03/24/23 09:39 Interval history: Patient comfortable at rest. No change in his chronic shortness of breath. Now on IV heparin. Patient has had no significant bleeding since admission hospital. Review of Systems Review of Systems: Review of systems noncontributory. Exam Narrative: Physical exam reveals patient be alert comfortable at rest vital signs stable. Lungs are clear. Heart without murmur. Abdomen bowel sounds present soft nontender rectal exam reveals hemorrhoids. Extremities with no clubbing cyanosis or edema. Objective Data Vital Signs Vital Signs: Vital Signs - 24 hr 03/23/23 11:28 03/23/23 12:15 03/23/23 12:30 Temperature 97.4 F L Pulse Rate 105 H 78 77 Respiratory Rate 18 22 H 23 H Blood Pressure 139/81 134/84 Pulse Oximetry 100 100 95 Oxygen Delivery Room Air 03/23/23 12:31 03/23/23 12:45 03/23/23 12:46 Temperature Pulse Rate 80 76 78 Respiratory Rate 21 H 22 H 19 Blood Pressure 129/77 133/78 Pulse Oximetry 95 93 93 Oxygen Delivery 03/23/23 13:00 03/23/23 13:18 03/23/23 13:21 Temperature Pulse Rate 79 80 Respiratory Rate 25 H 44 H Blood Pressure 131/85 Pulse Oximetry 98 100 Oxygen Delivery 03/23/23 13:33 03/23/23 13:45 03/23/23 14:00 Temperature Pulse Rate 66 74 69 Respiratory Rate Blood Pressure Pulse Oximetry 97 96 96 Oxygen Delivery 03/23/23 14:01 03/23/23 14:15 03/23/23 14:20 Temperature 97.1 F L Pulse Rate 67 74 69 Respiratory Rate 18 Blood Pressure 123/72 139/78 Pulse Oximetry 97 100 Oxygen Delivery 03/23/23 16:00 03/23/23 16:00 03/23/23 18:00 Temperature 97.8 F Pulse Rate 67 72 74 Respiratory Rate 16 Blood Pressure 148/86 H Pulse Oximetry 99 Oxygen Delivery 03/23/23 19:54 03/23/23 20:00 03/23/23 20:00 Temperature 97.9 F Pulse Rate 68 64 Respiratory Rate 18 Blood Pressure 143/68 H Pulse Oximetry 98 Oxygen Delivery Room Air 03/23/23 22:00 03/23/23 23:42 03/24/23 00:00 Temperature 97.8 F Pulse Rate 68 58 L Respiratory Rate 18 Blood Pressure 132/72 Pulse Oximetry 95 Oxygen Delivery Room Air 03/24/23 00:00 03/24/23 02:00 03/24/23 04:00 Temperature Pulse Rate 60 60 51 L Respiratory Rate Blood Pressure Pulse Oximetry Oxygen Delivery 03/24/23 04:00 03/24/23 04:00 03/24/23 05:57 Temperature 97.6 F Pulse Rate 59 L 69 Respiratory Rate 18
--- NOTE | 2023-03-24 09:41 | PM.IMPN ---
Progress Note: A&P Assessment and Plan (1) Pulmonary embolism: Qualifiers: Acute cor pulmonale presence: without acute cor pulmonale Chronicity: acute Pulmonary embolism type: unspecified Qualified Code(s): I26.99 - Other pulmonary embolism without acute cor pulmonale Code(s): I26.99 - Other pulmonary embolism without acute cor pulmonale Status: Acute Assessment and Plan: Outpatient CTA shows small bilateral segmental and subsegmental PEs with small thrombus burden. Patient was sent to the emergency room and found be anemic. Stool was guaiac negative by ED exam. Found to be iron and B12 deficient. The patient was started on a heparin drip. He has no prior history of VTE. No recent COVID. No recent travel. No recent immobility. No family history of DVTs. LE venous Dopplers negative for DVT. Echo pending. (2) Anemia: Qualifiers: Anemia type: unspecified type Qualified Code(s): D64.9 - Anemia, unspecified Code(s): D64.9 - Anemia, unspecified Status: Acute Assessment and Plan: Patient noted to be anemic on admission. Hemoglobin was normal 1 year ago. He admits to rectal bleeding with bowel movements consistent hemorrhoidal bleeding. Workup reveals iron deficiency and B12 deficiency. GI was consulted who recommended a colonoscopy and EGD when feasible. GI recommended surgery consult for the hemorrhoidal bleeding. Replace B12. Start iron infusions. General surgery consult. Continue Protonix. (3) POLA (iron deficiency anemia): Code(s): D50.9 - Iron deficiency anemia, unspecified Status: Acute Assessment and Plan: As above. Will check celiac panel. (4) Bleeding hemorrhoids: Code(s): K64.9 - Unspecified hemorrhoids Status: Acute Assessment and Plan: As above. Monitor H&H closely. (5) B12 deficiency anemia: Code(s): D51.9 - Vitamin B12 deficiency anemia, unspecified Status: Acute Assessment and Plan: B12 deficiency noted. Will replace. (6) Alcohol abuse: Code(s): F10.10 - Alcohol abuse, uncomplicated Status: Acute Assessment and Plan: Patient was educated about the benefits of abstain from alcohol use. CIWA score has been less than 4. Continue thiamine and folate. Continue with CIWA protocol. Ativan and Librium available prn. (7) ADHD: Code(s): F90.9 - Attention-deficit hyperactivity disorder, unspecified type Status: Acute Assessment and Plan: Mood stable. Holding Adderall for now. (8) Hypertension: Qualifiers: Hypertension type: essential hypertension Qualified Code(s): I10 - Essential (primary) hypertension Code(s): I10 - Essential (primary) hypertension Status: Acute Assessment and Plan: Patient's blood pressure was reviewed on 03/24 Blood pressure remains well controlled. Will continue current medications. (9) Chronic GERD: Code(s): K21.9 - Gastro-esophageal reflux disease without esophagitis Status: Acute Assessment and Plan: Sable. Continue with pantoprazole (10) Depression with anxiety: Code(s): F41.8 - Other specified anxiety disorders Status: Acute Assessment and Plan: Mood stable. Continue with BuSpar and sertraline. Subjective Date/time seen: 03/24/23 09:41 Interval history: 42yo male with depression, alcohol abuse, tobacco abuse and HTN here for PE discovered by outpatient CTA chest. Found to be anemic. He has hx of bleeding hemorrhoids. He has BRBPR with BMs. He strains due to constipation. Hx of hemorrhoidectomy in 2005. Drinks 2 mixed drinks and 6 beers per day. Also smokes tobacco and marijuana. Exam Narrative: AF 98.2 144/89 66 20 95% ra Gen - NARD Chest - scattered inspiratory rhonchi and prolonged expiratory phase. nml RR CV - RRR S1/S2. Tele showing no significnat dysrhythmias Abd - Soft, NT/ND, Positive
[2023-03-24 09:43] LABS: Hematocrit 32.1 % (42.0-52.0); Hemoglobin 9.1 g/dL (14.0-18.0)
[2023-03-24 09:57] LABS: Partial Thromboplastin Time 64.5 SECONDS (22.3-36.8)
[2023-03-24] MEDS: HEPARIN SODIUM 5,000 UNITS/ML VIAL 3500 UNITS IV PUSH (11:30)
[2023-03-24] MEDS: PEG (High)/E-LYTE SOLN 4,000 ML BTL 4000 ML PO (11:33)
[2023-03-24] MEDS: CYANOCOBALAMIN INJ 1,000 MCG/ML VIAL 1000 MCG SUB-Q (11:37)
[2023-03-24] MEDS: THIAMINE HCL 100 MG TABLET PO (11:38)
[2023-03-24] MEDS: LOSARTAN POTASSIUM 100 MG TABLET PO (11:38)
[2023-03-24] MEDS: hydroCHLOROthiazide 12.5 MG CAPSULE PO (11:38)
[2023-03-24] MEDS: THERAPEUTIC MULTIVITAMINS/MINERALS TAB (*BKC) 1 TABLET PO (11:38)
[2023-03-24] MEDS: SERTRALINE HCL 50 MG TABLET 100 MG PO (11:38)
[2023-03-24] MEDS: PANTOPRAZOLE 40 MG TABLET PO (11:39)
[2023-03-24] MEDS: HYDROCORTISONE ACETATE 25 MG SUPPOSITORY RECTAL ×2 (11:39→19:51)
[2023-03-24] MEDS: FERROUS SULFATE 324 MG TABLET PO ×2 (11:39→16:34)
[2023-03-24] MEDS: CYANOCOBALAMIN 1,000 MCG TABLET 1000 MCG PO (11:39)
[2023-03-24] MEDS: busPIRone HCL 10 MG TABLET PO (11:39)
[2023-03-24] MEDS: FOLIC ACID 1 MG TABLET PO (11:39)
[2023-03-24] MEDS: PSYLLIUM POWDER PACKET 1 PACKET PO (11:40)
[2023-03-24 11:43] LABS: Glucose Point of Care 113 mg/dl (65-105)
[2023-03-24] MEDS: IRON SUCROSE COMPLEX 100 MG in SODIUM CHLORIDE 0.9% IV 50 ML 220 MG IVPB (12:42)
[2023-03-24 13:09] LABS: IFOB Positive Control Positive; Immunochemical Fecal Occult Bl Negative (N)
[2023-03-24 14:29] LABS: Hematocrit 35.3 % (42.0-52.0)
[2023-03-24 14:49] LABS: Free T4 Free Thyroxine Reflex 1.07 ng/dL (0.78-2.19)
[2023-03-24 15:45] LABS: Total Triiodothyronine (T3) 1.67 NG/ML (0.97-1.69)
[2023-03-24 16:51] LABS: Partial Thromboplastin Time 140.1 SECONDS (22.3-36.8)
[2023-03-24 17:43] LABS: Glucose Point of Care 128 mg/dl (65-105)
[2023-03-24] MEDS: MELATONIN 5 MG TABLET PO (19:51)
[2023-03-24] MEDS: ACETAMINOPHEN 325 MG TABLET 650 MG PO (19:51)
[2023-03-24] MEDS: HEPARIN SOD/D5W 100 UNITS/ML 25,000 UNITS/250 ML BAG 16 UNITS IV CONT (19:52)
[2023-03-25] VITALS (14 sets, daily range): BP systolic 98–134; BP diastolic 65–82; PULSE 60–90; RESP 14–20; TEMP 35.9–37.1; O2SAT 94–100
[2023-03-25 00:04] LABS: Glucose Point of Care 104 mg/dl (65-105)
[2023-03-25 05:08] LABS: Basophils Percent Auto 0.4 % (0.2-1.2); Eosinophils Absolute Auto 0.1 K/mm3 (0-0.3); Hematocrit 32.4 % (42.0-52.0); Hemoglobin 8.9 g/dL (14.0-18.0); Immature Granulocyte Absolute 0.04 K/mm3 (0.00-0.031); Immature Granulocyte Percent A 0.6 % (0-0.5); Lymphocytes Absolute Auto 1.69 K/mm3 (0.9-3.2); Lymphocytes Percent Auto 24.6 % (18.3-44.2); Mean Corpuscular HGB Conc 27.5 g/dl (32-36); Mean Corpuscular Hemoglobin 19.4 pg (26-34); Mean Corpuscular Volume 70.6 fl (80-100); Mean Platelet Volume 9.2 fl (7.4-10.4); Monocytes Absolute Auto 0.4 K/mm3 (0.1-0.6); Monocytes Percent Auto 6.4 % (2.6-8.5); Neutrophils Absolute Auto 4.5 K/mm3 (1.3-6.7); Platelet Count Result 212 k/mm3 (150-375); Red Blood Count 4.59 M/mm3 (4.6-6.20); Red Cell Distribution Width 19.4 % (11.5-14.5); White Blood Count 6.9 K/mm3 (4.5-10.0)
[2023-03-25 05:27] LABS: Alanine Aminotransferase 22 U/L (6-50); Albumin Level 4.2 g/dL (3.5-5.1); Alkaline Phosphatase 62 U/L (38-126); Anion Gap 5 mmol/L (8-16); Aspartate Amino Transferase 26 U/L (17-59); Bilirubin,Total 0.6 mg/dL (0.2-1.3); Blood Urea Nitrogen 16 mg/dL (9-20); Calcium 8.9 mg/dL (8.4-10.2); Carbon Dioxide 31 mmol/L (22-30); Chloride 100 mmol/L (98-107); Estimated CRCL calculation 99 ml/min; Estimated Glomerular Filt Rate > 60; Glucose 97 mg/dL (65-110); Phosphorus 4.2 mg/dL (2.5-4.5); Potassium 3.7 mmol/L (3.4-5.0); Sodium 136 mmol/L (137-145)
[2023-03-25 06:07] LABS: Anisocytosis 2+ (NORMAL); Hypochromasia 2+ (NORMAL); Microcytosis 2+ (NORMAL); Platelet Estimate Adequate (Adequate)
[2023-03-25 06:08] LABS: Schistocytes None Seen (NORMAL)
--- NOTE | 2023-03-25 07:37 | WPDANESEPPF ---
Anes - Initial Pre Proc Eval Procedure: Operation Date: 03/25/23 08:00 Proposed Procedures p Esophagogastroduodenoscopy & Colonoscopy - Dannie Schultz MD Date/Time: 03/25/23 07:37 Surgeon: David Ruiz MD Pre Op Diagnosis: bilateral pes,anemia bleeding hemorrhoids Patient Data Age: 42 Gender: M Height: 1.83 m Weight: 103.8 kg Last Vital Signs Temp 35.9 C L 03/25/23 04:00 Pulse 63 03/25/23 05:54 Resp 14 03/25/23 04:00 BP 127/82 03/25/23 04:00 Pulse Ox 98 03/25/23 04:00 O2 Del Method Room Air 03/25/23 04:00 Allergies Allergy/AdvReac Type Severity Reaction Status Date / Time No Known Allergies Allergy Verified 03/25/23 08:28 Home Medications Medication Instructions Recorded Confirmed Type dextroamphetamine-amphetamine 10 10 mg PO DAILY 09/21/20 03/23/23 History mg tablet (Adderall) sildenafil 50 mg tablet 50 mg PO DAILY PRN sexual activity 06/02/21 03/23/23 Rx #30 tabs pantoprazole 20 mg tablet,delayed 20 mg PO QAM #30 tabs 01/01/23 03/23/23 Rx release (Protonix) sertraline 100 mg tablet 100 mg PO DAILY #30 tabs 02/20/23 03/23/23 Rx buspirone 10 mg tablet 10 mg PO DAILY 03/22/23 03/23/23 History albuterol sulfate 90 mcg/actuation 1 inh inhalation QID PRN Dyspnea 03/23/23 03/23/23 History aerosol inhaler losartan 100 12.5 - 100 tablet PO DAILY 03/23/23 03/23/23 History mg-hydrochlorothiazide 12.5 mg tablet Laboratory Tests 03/24/23 03/24/23 03/24/23 01:56 08:32 11:38 WBC RBC Hgb 9.1 L g/dL (14.0-18.0) Hct 32.1 L % (42.0-52.0) MCV MCH MCHC RDW Plt Count MPV Immature Gran % (Auto) Neut % (Auto) Lymph % (Auto) [place] % (Auto) Eos % (Auto) Baso % (Auto) Lymph # (Auto) [place] # (Auto) Eos # (Auto) Baso # (Auto) Abs Immat Gran (auto) Absolute Neuts (auto) Absolute Nucleated RBC Nucleated RBC % Platelet Estimate Hypochromasia Anisocytosis Microcytosis Schistocytes APTT 64.5 H SECONDS (22.3-36.8) Sodium Potassium Chloride Carbon Dioxide Anion Gap BUN Creatinine Estim Creat Clear Calc Estimated GFR Glucose POC Capillary Glucose 113 H mg/dl (65-105) Calcium Phosphorus Total Bilirubin AST ALT Alkaline Phosphatase Total Protein Albumin Free T4 1.07 ng/dL (0.78-2.19) Total T3 1.67 NG/ML (0.97-1.69) Stl Occult Blood (IFOB) 03/24/23 03/24/23 03/24/23 12:53 14:09 16:20 WBC RBC Hgb 10.0 L g/dL (14.0-18.0) Hct 35.3 L % (42.0-52.0) MCV MCH MCHC RDW Plt Count MPV Immature Gran % (Auto) Neut % (Auto) Lymph % (Auto) [place] % (Auto) Eos % (Auto) Baso % (Auto) Lymph # (Auto) [place] # (Auto) Eos # (Auto) Baso # (Auto) Abs Immat Gran (auto) Absolute Neuts (auto) Absolute Nucleated RBC Nucleated RBC % Platelet Estimate Hypochromasia Anisocytosis Microcytosis Schistocytes APTT 140.1 H SECONDS (22.3-36.8) Sodium Potassium Chloride Carbon Dioxide Anion Gap BUN Creatinine Estim Creat Magen
[2023-03-25] MEDS: LACTATED RINGERS 1,000 ML 150 ML IV CONT (08:40)
--- NOTE | 2023-03-25 08:48 | SUR.OPER ---
Pt pre oped and recovered in procedure room 2
--- NOTE | 2023-03-25 08:49 | SUR.OPER ---
EGD start 848 end 851, Colonoscopy start 858
--- NOTE | 2023-03-25 11:11 | WPDPN ---
Progress Note: A&P Assessment and Plan (1) Pulmonary embolism: Qualifiers: Acute cor pulmonale presence: without acute cor pulmonale Chronicity: acute Pulmonary embolism type: unspecified Qualified Code(s): I26.99 - Other pulmonary embolism without acute cor pulmonale Code(s): I26.99 - Other pulmonary embolism without acute cor pulmonale Status: Acute Assessment and Plan: Outpatient CTA shows small bilateral segmental and subsegmental PEs with small thrombus burden. Patient was sent to the emergency room and found to be anemic. Stool was guaiac negative by ED exam. Found to be iron and B12 deficient. The patient was started on a heparin drip. He has no prior history of VTE. No recent COVID. No recent travel. No recent immobility. No family history of DVTs. LE venous Dopplers negative for DVT. Echo showing EF 55-60% with normal diastolic function and trace valvular disease. Continue Heparin drip until cleared for Eliquis. Care coordination consult to see if he can afford Eliquis. Unprovoked PE so will proceed with coagulopathy workup. (2) Anemia: Qualifiers: Anemia type: unspecified type Qualified Code(s): D64.9 - Anemia, unspecified Code(s): D64.9 - Anemia, unspecified Status: Acute Assessment and Plan: Patient noted to be anemic on admission. Hemoglobin was normal 1 year ago. He admits to rectal bleeding with bowel movements consistent hemorrhoidal bleeding. Workup reveals iron deficiency and B12 deficiency. GI was consulted. EGD was normal. Colonoscopy showing internal rectal hemorrhoids with stigmata of bleeding. GI recommended surgery consult for the hemorrhoidal bleeding which was placed. B12 being replaced. Started on iron infusions. General surgery consulted. Celiac panel pending. Duodenal bx performed. Discussed with GenSurg who recommended clear liquid diet. He recommended hemorrhoidal surgery this admission if patient is agreeable. (3) POLA (iron deficiency anemia): Code(s): D50.9 - Iron deficiency anemia, unspecified Status: Acute Assessment and Plan: As above. Hgb stable mostly in the 8 range. (4) Bleeding hemorrhoids: Code(s): K64.9 - Unspecified hemorrhoids Status: Acute Assessment and Plan: As above. hgb stable. Monitor H&H closely. (5) B12 deficiency anemia: Code(s): D51.9 - Vitamin B12 deficiency anemia, unspecified Status: Acute Assessment and Plan: B12 deficiency noted. Continue to replace. (6) Alcohol abuse: Code(s): F10.10 - Alcohol abuse, uncomplicated Status: Acute Assessment and Plan: Patient was educated about the benefits of abstain from alcohol use. CIWA score 0. Continue thiamine and folate. Continue with CIWA protocol. Ativan and Librium available prn. (7) ADHD: Code(s): F90.9 - Attention-deficit hyperactivity disorder, unspecified type Status: Acute Assessment and Plan: Mood stable. Resume Adderall (8) Hypertension: Qualifiers: Hypertension type: essential hypertension Qualified Code(s): I10 - Essential (primary) hypertension Code(s): I10 - Essential (primary) hypertension Status: Acute Assessment and Plan: Patient's blood pressure was reviewed on 03/25 Blood pressure remains well controlled. Will continue current medications. (9) Chronic GERD: Code(s): K21.9 - Gastro-esophageal reflux disease without esophagitis Status: Acute Assessment and Plan: Sable. Continue with pantoprazole (10) Depression with anxiety: Code(s): F41.8 - Other specified anxiety disorders Status: Acute Assessment and Plan: Mood stable. Continue with BuSpar and sertraline. Subjective Date/time seen: 03/25/23 11:11 Interval history: 42yo male with depression, alcohol abuse, tobacco abuse and HTN here for PE discovered by outpatient
[2023-03-25] MEDS: HEPARIN SODIUM 5,000 UNITS/ML VIAL 7000 UNITS IV PUSH (11:27)
[2023-03-25] MEDS: THIAMINE HCL 100 MG TABLET PO (12:21)
[2023-03-25] MEDS: busPIRone HCL 10 MG TABLET PO (12:21)
[2023-03-25] MEDS: THERAPEUTIC MULTIVITAMINS/MINERALS TAB (*BKC) 1 TABLET PO (12:21)
[2023-03-25] MEDS: PANTOPRAZOLE 40 MG TABLET PO (12:21)
[2023-03-25] MEDS: CYANOCOBALAMIN 1,000 MCG TABLET 1000 MCG PO (12:21)
[2023-03-25] MEDS: SERTRALINE HCL 50 MG TABLET 100 MG PO (12:22)
[2023-03-25] MEDS: FOLIC ACID 1 MG TABLET PO (12:22)
[2023-03-25] MEDS: PSYLLIUM POWDER PACKET 1 PACKET PO (12:22)
[2023-03-25] MEDS: LOSARTAN POTASSIUM 100 MG TABLET PO (12:22)
[2023-03-25] MEDS: FERROUS SULFATE 324 MG TABLET PO ×2 (12:22→16:53)
[2023-03-25] MEDS: hydroCHLOROthiazide 12.5 MG CAPSULE PO (12:22)
[2023-03-25 12:39] LABS: Glucose Point of Care 111 mg/dl (65-105)
[2023-03-25] MEDS: IRON SUCROSE COMPLEX 100 MG in SODIUM CHLORIDE 0.9% IV 50 ML 220 MG IVPB (13:32)
[2023-03-25] MEDS: HYDROCORTISONE ACETATE 25 MG SUPPOSITORY RECTAL ×2 (13:33→20:40)
--- NOTE | 2023-03-25 14:08 | WPDCN ---
Assessment and Plan Assessment and plan (1) Bleeding hemorrhoids: Code(s): K64.9 - Unspecified hemorrhoids Status: Acute Assessment and Plan: The patient has been having profound bleeding from his internal hemorrhoids. Colonoscopy today shows no other lesions causing bleeding other than his hemorrhoids. He recently was diagnosed with pulmonary emboli and will need to be on systemic anticoagulation for the next 6 months. I have recommended that he have an excisional hemorrhoidectomy prior to being transition from heparin drip to oral anticoagulation. He is agreeable to proceeding with the procedure will try to get him on schedule during his hospitalization. HPI Data of Consult Date/Time: 03/25/23 14:08 Requesting Physician: David Ruiz MD Primary Care Provider: Carl Johnson, DO Consult Narrative Reason for consult: Bleeding internal hemorrhoids and iron deficiency and Narrative: Eltno Penaloza is a 42 year old male who was admitted to the hospital complaints of breathing problems. He underwent workup was found to have pulmonary emboli and was started on heparin drip. Blood work also showed he was profoundly anemic. He has been given blood transfusions to stabilize his hemoglobin. He states that he has had bleeding from his hemorrhoids for about 1 year. He has had a prior history of excisional hemorrhoidectomy many years ago. He works as a restaurant delivery driver. Denies having any pain from his hemorrhoids. He underwent a colonoscopy by Dr. Schultz this morning which showed no sources of bleeding other than sizable internal hemorrhoids which showed the recent stigmata of bleeding. Review of Systems Review of Systems: The remainder of the review of systems to include constitutional, HEENT, cardiovascular, respiratory, GI, , integumentary, musculoskeletal, endocrine, immunologic, hematologic, psychiatric, and neurologic are all negative except for which is mentioned above in the HPI. [facility] Past Medical History Medical History Chronic GERD Depression with anxiety Generalized hyperhidrosis Hypercholesterolemia Hypertension Surgical History Surgical History H/O removal of cyst 2006 S/P hemorrhoidectomy Family History Family History Mother Patient's mother is in good health Father Patient's father is in good health Grandparent Breast cancer Lung cancer Social History Social History Social History: He lives with his kids. he is single and has 4 kids. he works at [email or web address] . he uses marijuana. He drinks 2 mixed drinks of alcohol and 5 beers a night. He denies any durable power packer and carry out for healthcare. Code status full code Smoking packs per day: 1 Smoking cigarettes per day: 20.0 Smoking status: Current every day smoker Alcohol intake: current Drinks per week: 30 Alcohol use details: 7 drinks/day Substance use: current Substance use type: marijuana Other substance usage details: 10 bowls a day Lack of Transportation: No Lack of Food: Never True Current Housing: I Have Housing Concerned About Future Housing: No Difficulty Paying Gas/Electric Bills: No Difficulty Paying for Meds: No Currently Unemployed: No Education: High School Diploma/GED Difficulty w/ Childcare or Family Care: No Spiritual care concerns: No Meds Home Medications and Allergies Home Medications Medication Instructions Recorded Confirmed Type dextroamphetamine-amphetamine 10 10 mg PO DAILY 09/21/20 03/23/23 History mg tablet (Adderall) sildenafil 50 mg tablet 50 mg PO DAILY PRN sexual activity 06/02/21 03/23/23 Rx #30 tabs pantoprazole 20 mg tablet,delayed 20 mg PO QAM #30 tabs 01/01/23 03/23/23 Rx release (Protonix)
[2023-03-25 17:54] LABS: Partial Thromboplastin Time 122.6 SECONDS (22.3-36.8)
[2023-03-25] MEDS: MELATONIN 5 MG TABLET PO (20:40)
[2023-03-25 20:42] LABS: Glucose Point of Care 99 mg/dl (65-105)
[2023-03-25] MEDS: HEPARIN SOD/D5W 100 UNITS/ML 25,000 UNITS/250 ML BAG 18 UNITS IV CONT (20:42)
[2023-03-26] VITALS (7 sets, daily range): BP systolic 112–130; BP diastolic 64–75; PULSE 59–96; RESP 18–20; TEMP 36.2–36.5; O2SAT 98–100
[2023-03-26 00:05] LABS: Glucose Point of Care 110 mg/dl (65-105)
[2023-03-26 01:00] LABS: Partial Thromboplastin Time 111.8 SECONDS (22.3-36.8)
[2023-03-26 07:39] LABS: Anion Gap 4 mmol/L (8-16); Blood Urea Nitrogen 14 mg/dL (9-20); Calcium 9.3 mg/dL (8.4-10.2); Carbon Dioxide 30 mmol/L (22-30); Chloride 102 mmol/L (98-107); Estimated CRCL calculation 99 ml/min; Estimated Glomerular Filt Rate > 60; Glucose 109 mg/dL (65-110); Potassium 4.5 mmol/L (3.4-5.0); Sodium 136 mmol/L (137-145)
[2023-03-26 07:52] LABS: Hematocrit 33.8 % (42.0-52.0); Hemoglobin 9.5 g/dL (14.0-18.0); Mean Corpuscular HGB Conc 28.1 g/dl (32-36); Mean Corpuscular Volume 71.3 fl (80-100); Mean Platelet Volume 9.1 fl (7.4-10.4); Platelet Count Result 221 k/mm3 (150-375); Red Blood Count 4.74 M/mm3 (4.6-6.20); Red Cell Distribution Width 19.8 % (11.5-14.5); White Blood Count 8.7 K/mm3 (4.5-10.0)
[2023-03-26] MEDS: LOSARTAN POTASSIUM 100 MG TABLET PO (08:17)
[2023-03-26] MEDS: THERAPEUTIC MULTIVITAMINS/MINERALS TAB (*BKC) 1 TABLET PO (08:17)
[2023-03-26] MEDS: FOLIC ACID 1 MG TABLET PO (08:17)
[2023-03-26] MEDS: THIAMINE HCL 100 MG TABLET PO (08:17)
[2023-03-26] MEDS: hydroCHLOROthiazide 12.5 MG CAPSULE PO (08:17)
[2023-03-26] MEDS: FERROUS SULFATE 324 MG TABLET PO ×2 (08:17→16:35)
[2023-03-26] MEDS: SERTRALINE HCL 50 MG TABLET 100 MG PO (08:17)
[2023-03-26] MEDS: CYANOCOBALAMIN 1,000 MCG TABLET 1000 MCG PO (08:17)
[2023-03-26] MEDS: PANTOPRAZOLE 40 MG TABLET PO (08:17)
[2023-03-26] MEDS: busPIRone HCL 10 MG TABLET PO (08:17)
[2023-03-26] MEDS: IRON SUCROSE COMPLEX 100 MG in SODIUM CHLORIDE 0.9% IV 50 ML 220 MG IVPB (08:18)
[2023-03-26] MEDS: PSYLLIUM POWDER PACKET 1 PACKET PO (08:18)
--- NOTE | 2023-03-26 10:29 | PM.IMPN ---
Progress Note: A&P Assessment and Plan (1) Pulmonary embolism: Qualifiers: Acute cor pulmonale presence: without acute cor pulmonale Chronicity: acute Pulmonary embolism type: unspecified Qualified Code(s): I26.99 - Other pulmonary embolism without acute cor pulmonale Code(s): I26.99 - Other pulmonary embolism without acute cor pulmonale Status: Acute Assessment and Plan: Outpatient CTA chest shows small bilateral segmental and subsegmental PEs with small thrombus burden. Patient was sent to the emergency room and found to be anemic. Stool was guaiac negative by ED exam. Found to be iron and B12 deficient. The patient was started on a heparin drip. He has no prior history of VTE. No recent COVID. No recent travel. No recent immobility. No family history of DVTs. LE venous Dopplers negative for DVT. Echo showing EF 55-60% with normal diastolic function and trace valvular disease. Unprovoked PE so coagulopathy workup ordered. Continue Heparin drip until cleared for Eliquis. Care coordination consult to see if he can afford Eliquis. (2) Anemia: Qualifiers: Anemia type: unspecified type Qualified Code(s): D64.9 - Anemia, unspecified Code(s): D64.9 - Anemia, unspecified Status: Acute Assessment and Plan: Patient noted to be anemic on admission. Hemoglobin was normal 1 year ago. He admits to rectal bleeding with bowel movements consistent hemorrhoidal bleeding. Workup reveals iron deficiency and B12 deficiency. Celiac panel pending. GI was consulted. EGD was normal. Colonoscopy showing internal rectal hemorrhoids with stigmata of bleeding. Duodenal bx pathology pending. B12 being replaced. Started on iron infusions. General surgery consulted. Discussed with GenSursharif who recommended clear liquid diet in preparation for hemorrhoidal surgery this admission. Plan for surgery tomorrow. (3) POLA (iron deficiency anemia): Code(s): D50.9 - Iron deficiency anemia, unspecified Status: Acute Assessment and Plan: As above. Hgb stable mostly in the 8-9 range. Follow (4) Bleeding hemorrhoids: Code(s): K64.9 - Unspecified hemorrhoids Status: Acute Assessment and Plan: As above. hgb stable. Monitor H&H closely. (5) B12 deficiency anemia: Code(s): D51.9 - Vitamin B12 deficiency anemia, unspecified Status: Acute Assessment and Plan: B12 deficiency noted. Continue to replace. (6) Alcohol abuse: Code(s): F10.10 - Alcohol abuse, uncomplicated Status: Acute Assessment and Plan: Patient was educated about the benefits of abstain from alcohol use. CIWA score 0. Continue thiamine and folate. Ativan and Librium available prn. (7) ADHD: Code(s): F90.9 - Attention-deficit hyperactivity disorder, unspecified type Status: Acute Assessment and Plan: Mood stable. Continue Adderall (8) Hypertension: Qualifiers: Hypertension type: essential hypertension Qualified Code(s): I10 - Essential (primary) hypertension Code(s): I10 - Essential (primary) hypertension Status: Acute Assessment and Plan: Patient's blood pressure was reviewed on 03/26 Blood pressure remains well controlled. Will continue current medications. (9) Chronic GERD: Code(s): K21.9 - Gastro-esophageal reflux disease without esophagitis Status: Acute Assessment and Plan: Sable. Continue with pantoprazole (10) Depression with anxiety: Code(s): F41.8 - Other specified anxiety disorders Status: Acute Assessment and Plan: Mood stable. Continue with BuSpar and sertraline. Subjective Date/time seen: 03/26/23 10:29 Interval history: 42yo male with depression, alcohol abuse, tobacco abuse and HTN here for PE discovered by outpatient CTA chest. Found to be anemic. No problem overnight. No CP or SOB. Slept well. No fu
--- NOTE | 2023-03-26 11:25 | PM.PNGS ---
Progress Note: A&P Assessment and Plan (1) Bleeding hemorrhoids: Code(s): K64.9 - Unspecified hemorrhoids Status: Acute Assessment and Plan: Plan to proceed with anorectal evaluation under anesthesia and excisional hemorrhoidectomy tomorrow. This is needed because he is expected to be on systemic oral anticoagulation and his bleeding hemorrhoids will continue to bleed if they are not removed. Discussed this extensively with the patient he is agreeable to proceed with excisional hemorrhoidectomy. Will give him a fleets enema tonight. He states on clear liquids still midnight and then NPO. Will need to stop the heparin drip 4hours prior to the OR time. We will plan on restarting his heparin drip about 8hours after the surgery. Subjective Subjective Date/Time Seen: 03/26/23 11:25 Interval history: Patient without acute clinical changes. Not had any bowel movements her blood per rectum since before his colonoscopy yesterday. He has tolerated clear liquid diet. Hemoglobin stabilized. He remains on heparin drip for pulmonary emboli. No shortness of breath. Review of Systems Review of Systems: The remainder of the review of systems to include constitutional, HEENT, cardiovascular, respiratory, GI, , integumentary, musculoskeletal, endocrine, immunologic, hematologic, psychiatric, and neurologic are all negative except for which is mentioned above in the HPI. Exam Const: General: comfortable and no acute distress Resp: Effort & Inspection: normal respiratory effort Auscultation: clear to auscultation bilaterally Cardio: Rate: regular rate Rhythm: regular rhythm GI: Other: Rectal exam reveals no post hemorrhoids. No bleeding from the hemorrhoids. Circumferential grade 3 internal hemorrhoids. Neuro: Speech: normal speech Sensory Exam: normal sensation Psych: Mental Status: mental status grossly normal Affect: normal affect Objective Data Vital Signs Vital Signs: Vital Signs - 24 hr 03/25/23 12:00 03/25/23 16:26 03/25/23 16:00 Temperature 37.1 C 36.9 C Pulse Rate 90 82 Respiratory Rate 20 18 Blood Pressure 134/77 120/78 Pulse Oximetry 95 97 Oxygen Delivery Room Air 03/25/23 21:12 03/25/23 20:30 03/26/23 00:00 Temperature 36.8 C Pulse Rate 67 Respiratory Rate 18 Blood Pressure 130/75 130/75 130/75 Pulse Oximetry 95 Oxygen Delivery 03/26/23 04:00 03/26/23 05:37 03/26/23 08:00 Temperature 36.5 C Pulse Rate 59 L 59 L Respiratory Rate 18 18 Blood Pressure 130/75 112/64 Pulse Oximetry 98 98 Oxygen Delivery Room Air Intake/Output Intake/Output: Intake & Output 03/23/23 03/24/23 03/25/23 03/26/23 23:59 23:59 23:59 23:59 Intake Total 480 2495 1875 690 Output Total 1425 1500 350 700 Balance -258 263 6614 -10 Meds/Results Medications: Active Medications Generic Name Dose Route Start Last Admin Trade Name Freq PRN Reason Stop Dose Admin Acetaminophen 650 mg 03/23/23 20:28 03/24/23 19:51 Acetaminophen 325 Mg Tablet PO 650 mg Q4H PRN Administration Headache Albuterol 1 puff 03/23/23 20:25 Albuterol Sulfate (*Sp) Aerosol 1 Puff INHALATION QID PRN Dyspnea Buspirone HCl 10 mg 03/24/23 09:00 03/26/23 08:17 Buspirone Hcl 10 Mg Tablet PO 10 mg DAILY REYNOLD Administration Chlordiazepoxide HCl 25 mg 03/23/23 20:39 Chlordiazepoxide (*Crx) 25 Mg Capsule PO Q6H PRN Withdrawal Cyanocobalamin 1,000 mcg 03/24/23 09:00 03/26/23 08:17 Cyanocobalamin 1,000 Mcg Tablet PO 1,000 mcg QAM REYNOLD Administration Cyanocobalamin 1,000 mcg 03/24/23 09:45 03/24/23 11:37 Cyanocobalamin Inj 1,000 Mcg/Ml Vial SUB-Q 1,000 mcg WEEKLY REYNOLD Administration Ferrous Sulfate 324 mg 03/24/23 08:10 03/26/23 08:17 Ferrous Sulfate 324 Mg Tablet PO 324 mg BIDWM REYNOLD Administration Folic Acid 1 mg 03/24/23 09:00 03/26/23 08:17 Folic Acid 1 Mg Tablet PO 1 mg DAILY
[2023-03-26] MEDS: HEPARIN SOD/D5W 100 UNITS/ML 25,000 UNITS/250 ML BAG 16 UNITS IV CONT (14:19)
[2023-03-26] MEDS: HEPARIN SODIUM 5,000 UNITS/ML VIAL 3500 UNITS IV PUSH (14:25)
[2023-03-26] MEDS: LORazepam INJ (*CRX) 2 MG/ML VIAL IV PUSH (14:33)
[2023-03-26 19:24] LABS: Partial Thromboplastin Time 117.6 SECONDS (22.3-36.8)
[2023-03-26] MEDS: HYDROCORTISONE ACETATE 25 MG SUPPOSITORY RECTAL (21:32)
[2023-03-26] MEDS: MELATONIN 5 MG TABLET PO (21:32)
[2023-03-26] MEDS: LACTATED RINGERS 1,000 ML 75 ML IV CONT (23:53)
[2023-03-27] VITALS (12 sets, daily range): BP systolic 118–159; BP diastolic 62–99; PULSE 62–97; RESP 14–21; TEMP 36.1–36.4; O2SAT 98–100
[2023-03-27 02:14] LABS: Partial Thromboplastin Time 77.8 SECONDS (22.3-36.8)
[2023-03-27] MEDS: HEPARIN SOD/D5W 100 UNITS/ML 25,000 UNITS/250 ML BAG 16 UNITS IV CONT ×2 (05:03→22:04)
[2023-03-27 07:44] LABS: Hematocrit 34.2 % (42.0-52.0); Hemoglobin 9.6 g/dL (14.0-18.0); Mean Corpuscular HGB Conc 28.1 g/dl (32-36); Mean Corpuscular Volume 71.3 fl (80-100); Mean Platelet Volume 8.9 fl (7.4-10.4); Platelet Count Result 228 k/mm3 (150-375); White Blood Count 8.7 K/mm3 (4.5-10.0)
[2023-03-27 07:54] LABS: Anion Gap 7 mmol/L (8-16); Blood Urea Nitrogen 12 mg/dL (9-20); Calcium 8.9 mg/dL (8.4-10.2); Carbon Dioxide 25 mmol/L (22-30); Chloride 102 mmol/L (98-107); Estimated CRCL calculation 118 ml/min; Estimated Glomerular Filt Rate > 60; Glucose 99 mg/dL (65-110); Sodium 134 mmol/L (137-145)
[2023-03-27 07:57] LABS: Partial Thromboplastin Time 74.1 SECONDS (22.3-36.8)
[2023-03-27] MEDS: busPIRone HCL 10 MG TABLET PO (09:01)
[2023-03-27] MEDS: SERTRALINE HCL 50 MG TABLET 100 MG PO (09:01)
--- NOTE | 2023-03-27 12:33 | PM.IMPN ---
Progress Note: A&P Assessment and Plan (1) Pulmonary embolism: Qualifiers: Acute cor pulmonale presence: without acute cor pulmonale Chronicity: acute Pulmonary embolism type: unspecified Qualified Code(s): I26.99 - Other pulmonary embolism without acute cor pulmonale Code(s): I26.99 - Other pulmonary embolism without acute cor pulmonale Status: Acute Assessment and Plan: Outpatient CTA chest shows small bilateral segmental and subsegmental PEs with small thrombus burden. Patient was sent to the emergency room and found to be anemic. Stool was guaiac negative by ED exam. Found to be iron and B12 deficient. The patient was started on a heparin drip. He has no prior history of VTE. No recent COVID. No recent travel. No recent immobility. he may have a family history of DVTs. LE venous Dopplers negative for DVT. Echo showing EF 55-60% with normal diastolic function and trace valvular disease. Unprovoked PE so coagulopathy workup ordered. Continue Heparin drip until cleared for Eliquis by surgery. Care coordination consult working on securing Eliquis. (2) Anemia: Qualifiers: Anemia type: unspecified type Qualified Code(s): D64.9 - Anemia, unspecified Code(s): D64.9 - Anemia, unspecified Status: Acute Assessment and Plan: Patient noted to be anemic on admission. Hemoglobin was normal 1 year ago. He admits to rectal bleeding with bowel movements consistent hemorrhoidal bleeding. Workup reveals iron deficiency and B12 deficiency. Celiac panel pending. GI was consulted. EGD was normal. Colonoscopy showing internal rectal hemorrhoids with stigmata of bleeding. Duodenal bx pathology pending. B12 being replaced. Started on iron infusions. General surgery consulted. Discussed with GenSurg who recommended hemorrhoidal surgery this admission. Plan for surgery today (3) POLA (iron deficiency anemia): Code(s): D50.9 - Iron deficiency anemia, unspecified Status: Acute Assessment and Plan: As above. Hgb stable mostly in the 8-9 range. Follow (4) Bleeding hemorrhoids: Code(s): K64.9 - Unspecified hemorrhoids Status: Acute Assessment and Plan: As above. hgb stable. Monitor H&H closely. (5) B12 deficiency anemia: Code(s): D51.9 - Vitamin B12 deficiency anemia, unspecified Status: Acute Assessment and Plan: B12 deficiency noted. Continue to replace. (6) Alcohol abuse: Code(s): F10.10 - Alcohol abuse, uncomplicated Status: Acute Assessment and Plan: Patient was educated about the benefits of abstaining from alcohol use. CIWA score low. Continue thiamine and folate. Ativan and Librium available prn. (7) ADHD: Code(s): F90.9 - Attention-deficit hyperactivity disorder, unspecified type Status: Acute Assessment and Plan: Mood stable. Continue Adderall (8) Hypertension: Qualifiers: Hypertension type: essential hypertension Qualified Code(s): I10 - Essential (primary) hypertension Code(s): I10 - Essential (primary) hypertension Status: Acute Assessment and Plan: Patient's blood pressure was reviewed on 03/27 Blood pressure remains well controlled. Will continue current medications. (9) Chronic GERD: Code(s): K21.9 - Gastro-esophageal reflux disease without esophagitis Status: Acute Assessment and Plan: Sable. Continue with pantoprazole (10) Depression with anxiety: Code(s): F41.8 - Other specified anxiety disorders Status: Acute Assessment and Plan: Mood stable. Continue with BuSpar and sertraline. Subjective Date/time seen: 03/27/23 12:33 Interval history: 42yo male with depression, alcohol abuse, tobacco abuse and HTN here for PE discovered by outpatient CTA chest. Found to be anemic. No problems overnight. Feels well. No complaints. No CP or SOB.
--- NOTE | 2023-03-27 15:13 | WPDANESEPP ---
Anes - Eval Pre Procedure Procedure: Operation Date: 03/27/23 15:00 Proposed Procedures p Rectal Exam Under Anesthesia, Excisional Hemorrhoidectomy - Eitan Kwan MD Date/Time: 03/27/23 15:13 Pre Op Diagnosis: bilateral pes,anemia bleeding hemorrhoids Patient Data Age: 42 Gender: M Height: 1.83 m Weight: 102 kg Last Vital Signs Temp 36.4 C 03/27/23 08:00 Pulse 64 03/27/23 08:00 Resp 18 03/27/23 08:00 BP 122/62 03/27/23 12:00 Pulse Ox 98 03/27/23 08:00 O2 Del Method Room Air 03/27/23 08:00 Allergies Allergy/AdvReac Type Severity Reaction Status Date / Time No Known Allergies Allergy Verified 03/25/23 08:28 Home Medications Medication Instructions Recorded Confirmed Type dextroamphetamine-amphetamine 10 10 mg PO DAILY 09/21/20 03/23/23 History mg tablet (Adderall) sildenafil 50 mg tablet 50 mg PO DAILY PRN sexual activity 06/02/21 03/23/23 Rx #30 tabs pantoprazole 20 mg tablet,delayed 20 mg PO QAM #30 tabs 01/01/23 03/23/23 Rx release (Protonix) sertraline 100 mg tablet 100 mg PO DAILY #30 tabs 02/20/23 03/23/23 Rx buspirone 10 mg tablet 10 mg PO DAILY 03/22/23 03/23/23 History albuterol sulfate 90 mcg/actuation 1 inh inhalation QID PRN Dyspnea 03/23/23 03/23/23 History aerosol inhaler losartan 100 12.5 - 100 tablet PO DAILY 03/23/23 03/23/23 History mg-hydrochlorothiazide 12.5 mg tablet Laboratory Tests 03/26/23 03/27/23 03/27/23 19:06 01:38 07:37 WBC 8.7 K/mm3 (4.5-10.0) RBC 4.80 M/mm3 (4.6-6.20) Hgb 9.6 L g/dL (14.0-18.0) Hct 34.2 L % (42.0-52.0) MCV 71.3 L fl (80-100) MCH 20.0 L pg (26-34) MCHC 28.1 L g/dl (32-36) RDW 20.0 H % (11.5-14.5) Plt Count 228 k/mm3 (150-375) MPV 8.9 fl (7.4-10.4) APTT 117.6 H SECONDS 77.8 H SECONDS 74.1 H SECONDS (22.3-36.8) (22.3-36.8) (22.3-36.8) Sodium 134 L mmol/L (137-145) Potassium 4.0 mmol/L (3.4-5.0) Chloride 102 mmol/L (98-107) Carbon Dioxide 25 mmol/L (22-30) Anion Gap 7 L mmol/L (8-16) BUN 12 mg/dL (9-20) Creatinine 0.90 mg/dL (0.7-1.3) Estim Creat Clear Calc 118 ml/min Estimated GFR > 60 (59 - ) Glucose 99 mg/dL (65-110) Calcium 8.9 mg/dL (8.4-10.2) Patient hx anesthesia problems: none Family hx anesthesia problems: none Results Review: All pre-operative results and documents have been reviewed as part of the pre-operative evaluation. [facility] Past Medical History Medical History Chronic GERD Depression with anxiety Generalized hyperhidrosis Hypercholesterolemia Hypertension Surgical History Surgical History H/O removal of cyst 2006 S/P hemorrhoidectomy Family History Family History Mother Patient's mother is in good health Father Patient's father is in good health Grandparent Breast cancer Lung cancer Social History Social History Social History: He lives with his kids. he is single and has 4 kids. he works at [employer] . he uses marijuana. He drinks 2 mixed drinks of alcohol and 5 beers a night. 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 Code status full code Smoking packs per day: 1 Smoking cigarettes per day: 20.0 Smoking status: Current every day smoker Alcohol intake: current Drinks per week: 30 Alcohol use details: 7 drinks/day Substance use: current Substance use type: marijuana Other substance usage details: 10 bowls a day Lack of Transportation: No Lack of Food: Never True Current Housing: I Have Housing Concerned About Future Housing: No Difficulty Paying [place]
--- NOTE | 2023-03-27 15:27 | WPDANESEPPF ---
Anes - Initial Pre Proc Eval Procedure: Operation Date: 03/25/23 08:00 Proposed Procedures p Esophagogastroduodenoscopy & Colonoscopy - Dannie Schultz MD Operation Date: 03/27/23 15:00 Proposed Procedures p Rectal Exam Under Anesthesia, Excisional Hemorrhoidectomy - Eitan Kwan MD Date/Time: 03/27/23 15:27 Surgeon: David Ruiz MD Pre Op Diagnosis: bilateral pes,anemia bleeding hemorrhoids Patient Data Age: 42 Gender: M Height: 1.83 m Weight: 102 kg Last Vital Signs Temp 36.4 C 03/27/23 08:00 Pulse 64 03/27/23 08:00 Resp 18 03/27/23 08:00 BP 122/62 03/27/23 12:00 Pulse Ox 98 03/27/23 08:00 O2 Del Method Room Air 03/27/23 08:00 Allergies Allergy/AdvReac Type Severity Reaction Status Date / Time No Known Allergies Allergy Verified 03/27/23 15:20 Home Medications Medication Instructions Recorded Confirmed Type dextroamphetamine-amphetamine 10 10 mg PO DAILY 09/21/20 03/23/23 History mg tablet (Adderall) sildenafil 50 mg tablet 50 mg PO DAILY PRN sexual activity 06/02/21 03/23/23 Rx #30 tabs pantoprazole 20 mg tablet,delayed 20 mg PO QAM #30 tabs 01/01/23 03/23/23 Rx release (Protonix) sertraline 100 mg tablet 100 mg PO DAILY #30 tabs 02/20/23 03/23/23 Rx buspirone 10 mg tablet 10 mg PO DAILY 03/22/23 03/23/23 History albuterol sulfate 90 mcg/actuation 1 inh inhalation QID PRN Dyspnea 03/23/23 03/23/23 History aerosol inhaler losartan 100 12.5 - 100 tablet PO DAILY 03/23/23 03/23/23 History mg-hydrochlorothiazide 12.5 mg tablet Laboratory Tests 03/26/23 03/27/23 03/27/23 19:06 01:38 07:37 WBC 8.7 K/mm3 (4.5-10.0) RBC 4.80 M/mm3 (4.6-6.20) Hgb 9.6 L g/dL (14.0-18.0) Hct 34.2 L % (42.0-52.0) MCV 71.3 L fl (80-100) MCH 20.0 L pg (26-34) MCHC 28.1 L g/dl (32-36) RDW 20.0 H % (11.5-14.5) Plt Count 228 k/mm3 (150-375) MPV 8.9 fl (7.4-10.4) APTT 117.6 H SECONDS 77.8 H SECONDS 74.1 H SECONDS (22.3-36.8) (22.3-36.8) (22.3-36.8) Sodium 134 L mmol/L (137-145) Potassium 4.0 mmol/L (3.4-5.0) Chloride 102 mmol/L (98-107) Carbon Dioxide 25 mmol/L (22-30) Anion Gap 7 L mmol/L (8-16) BUN 12 mg/dL (9-20) Creatinine 0.90 mg/dL (0.7-1.3) Estim Creat Clear Calc 118 ml/min Estimated GFR > 60 (59 - ) Glucose 99 mg/dL (65-110) Calcium 8.9 mg/dL (8.4-10.2) Patient hx anesthesia problems: none Family hx anesthesia problems: none Results Review: All pre-operative results and documents have been reviewed as part of the pre-operative evaluation. [facility] Past Medical History Medical History Chronic GERD Depression with anxiety Generalized hyperhidrosis Hypercholesterolemia Hypertension Surgical History Surgical History H/O removal of cyst 2006 S/P hemorrhoidectomy Family History Family History Mother Patient's mother is in good health Father Patient's father is in good health Grandparent Breast cancer Lung cancer Social History Social History Social History: He lives with his kids. he is single and has 4 kids. he works at [employer] . he uses marijuana. He drinks 2 mixed drinks of alcohol and 5 beers a night. 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 Code status full code Smoking packs per day: 1 Smoking cigarettes per day: 20.0 Smoking status: Current every day smoker Alcohol intake: current Drinks per week: 30 Alcohol use details: 7 drinks/day Substance use: current Substance use type: marijuana Other substance usage details:
--- NOTE | 2023-03-27 15:31 | WPDHPUPDATE1 ---
History and Physical Update Update Date/Time: 03/27/23 15:31 History and Physical has been reviewed, including an updated exam of the patient. There are NO changes in the patient's condition. Risks, benefits, and alternatives have been discussed and questions answered. Patient agrees to proceed with procedure.
[2023-03-27] MEDS: ceFAZolin 2 GM/D5W 50 ML 2 GM/50 ML BAG IVPB (15:35)
[2023-03-27] MEDS: BUPivacaine HCL 0.5% 10 ML AMP 30 ML INFILTRATE (15:56)
[2023-03-27] MEDS: LIDO 1%/EPINEPHRINE 1:100,000 50 ML VIAL INFILTRATE (15:56)
[2023-03-27] MEDS: LACTATED RINGERS 1,000 ML 30 ML IV CONT ×2 (16:00→16:47)
[2023-03-27] MEDS: LIDOCAINE HCL 2% JELLY 5 ML TUBE 1 APPLIC MUCOUS MEM (16:10)
--- NOTE | 2023-03-27 17:00 | PM.OP ---
Procedure Note - Brief Procedure Note - Brief Date of procedure: 03/27/23 bilateral pes,anemia bleeding hemorrhoids Procedure performed: Excisional hemorrhoidectomy x2, banding of internal hemorrhoid x1 Surgeon: Eitan Kwan MD Anesthesia: GETA Findings: Bulky internal hemorrhoids x2 at 2:00 a.m. and 9:00 a.m. positions with the patient prone smaller internal hemorrhoid at 5:00 a.m. anterior with the patient prone Estimated blood loss (mL): 25 Urine output (mL): 900 Drains: No Packing: Yes (Rectal Gelfoam packing) Pathology: Yes Complications: No immediate complications Condition: Stable Disposition: PACU
--- NOTE | 2023-03-27 18:26 | PC.NURSE ---
Ok for a one time dose of po ativan.
--- NOTE | 2023-03-27 18:32 | W.PM.PROC2 ---
Procedure Note - Detailed Date of Procedure 03/27/23 Pre-op Diagnosis Bleeding internal hemorrhoids Post-op Diagnosis Same Procedure Performed Excisional hemorrhoidectomy x2, banding of internal hemorrhoids x1 Surgeon Eitan Kwan MD Anesthesia General Indications Patient has had significant bleeding from his internal hemorrhoids. Colonoscopy showed nothing of significance other than the bleeding hemorrhoids. He has pulmonary emboli and is needing to be placed on systemic oral anticoagulation. Because bleeding hemorrhoids he will need to have these excised treated surgically before being placed on Eliquis. Findings Two large internal hemorrhoids located at the 2:00. and 9:00. positions with the patient prone. A smaller internal hemorrhoid at the 5:00 position. Description of Procedure After informed consent was obtained patient brought to the operating room and placed under general endotracheal anesthesia and the knee was turned prone in the hernan-knife position on operating table. Care was taken make sure all the pressure points well padded. The buttocks were then taped apart to expose the perianal region. The area was then prepped and draped in usual sterile fashion. A time-out was then performed correctly identifying the patient as well as procedure to be performed. He was given perioperative IV antibiotics. I 1st started by gently dilated the anal sphincters. A lubricated anal speculum was placed into the anal canal and a circumferential evaluation of distal rectum anal canal was performed. Patient had 2 large internal hemorrhoids located at the 2:00 and 9:00 positions with the patient prone and a smaller internal hemorrhoid at the 5 o'clock position. I proceeded to perform excisional hemorrhoidectomy on the 2 largest internal hemorrhoids. I 1st started with the 1 on the right posterior lateral position and injected local anesthetic mixture consisting 1% lidocaine mixed with 0.5% Marcaine underneath the hemorrhoid. It was then held with an Allis clamp at the apex and then a 2 0 chromic suture was placed at the apex of the hemorrhoid. I then used a scalpel to incise the tissue on either side of the hemorrhoid and sarah configuration all the way out onto the perianal skin. Careful dissection was electrocautery was then used to excise off the hemorrhoid tissue. The internal sphincter muscle was palpated and it was preserved without any injury during the dissection. Once the hemorrhoid was completely excised off was sent to pathology for examination. The incision was then closed utilizing the 2-0 chromic suture which was previously placed and was run in a locking fashion out to the anal verge. At this point I transitioned to using a running 3-0 Vicryl suture placed in a locking fashion to approximate the perianal skin. I then proceeded to perform very similar excision of the large hemorrhoid at the left lateral position. Again the local anesthetic mixture was injected underneath the hemorrhoid and then a 2-0 chromic suture was placed at the apex of the hemorrhoid. A scalp was used to incise the tissue on either side of the hemorrhoid onto the perianal skin. Electrocautery was then used to excise out the hemorrhoid tissue without damaging the internal sphincter muscle fibers. This hemorrhoid was sent to pathology as well. The wound was then closed utilizing 2-0 chromic suture was then run in a locking fashion at the perianal skin. I then transition using 3-0 Vicryl suture to approximate the skin edges in the perianal region. Lastly the smaller hemorrhoid at the 5 o'clock position was treated with double rubber-band ligation. Local anesthetic mixture was injected underneath the hemorrhoidal lifted up and then the hemorrhoid tissue was held in an Allis clamp. The rubber band ligator device was then used to place 2 rubber-band onto the hemorrhoid tissue. I then irrigated out the anal canal with sterile saline solution. Hemostasis
[2023-03-27] MEDS: FERROUS SULFATE 324 MG TABLET PO (18:58)
[2023-03-27] MEDS: LORazepam (*CRX) 0.5 MG TABLET PO (18:58)
[2023-03-27] MEDS: LACTATED RINGERS 1,000 ML 75 ML IV CONT (19:01)
[2023-03-27] MEDS: MELATONIN 5 MG TABLET PO (20:54)
[2023-03-27] MEDS: oxyCODONE HCL (*CRX) 5 MG TAB IR PO (20:56)
[2023-03-27] MEDS: HYDROmorphone HCL INJ (*CRX) 1 MG/ML SYR 0.5 MG IV PUSH (22:42)
[2023-03-28] MEDS: oxyCODONE HCL (*CRX) 5 MG TAB IR PO ×2 (02:18→06:51)
--- NOTE | 2023-03-28 04:55 | PC.NURSE ---
At 0445 nurse called manager labor delivery to obtain timed PTT that was due at 0400.
[2023-03-28 05:16] LABS: Partial Thromboplastin Time 52.2 SECONDS (22.3-36.8)
[2023-03-28] MEDS: HEPARIN SODIUM 5,000 UNITS/ML VIAL 7000 UNITS IV PUSH (05:27)
[2023-03-28] MEDS: LACTATED RINGERS 1,000 ML 75 ML IV CONT (05:30)
[2023-03-28] MEDS: HEPARIN SOD/D5W 100 UNITS/ML 25,000 UNITS/250 ML BAG 20 UNITS IV CONT (06:52)
[2023-03-28 08:00] VITALS: BP 120/73
[2023-03-28] MEDS: FERROUS SULFATE 324 MG TABLET PO (09:38)
[2023-03-28] MEDS: THIAMINE HCL 100 MG TABLET PO (09:38)
[2023-03-28] MEDS: THERAPEUTIC MULTIVITAMINS/MINERALS TAB (*BKC) 1 TABLET PO (09:38)
[2023-03-28] MEDS: PSYLLIUM POWDER PACKET 1 PACKET PO (09:38)
[2023-03-28] MEDS: busPIRone HCL 10 MG TABLET PO (09:38)
[2023-03-28] MEDS: DOCUSATE SODIUM 100 MG CAPSULE PO (09:38)
[2023-03-28] MEDS: SERTRALINE HCL 50 MG TABLET 100 MG PO (09:38)
[2023-03-28] MEDS: CYANOCOBALAMIN 1,000 MCG TABLET 1000 MCG PO (09:38)
[2023-03-28] MEDS: FOLIC ACID 1 MG TABLET PO (09:38)
[2023-03-28] MEDS: hydroCHLOROthiazide 12.5 MG CAPSULE PO (09:38)
[2023-03-28] MEDS: LOSARTAN POTASSIUM 100 MG TABLET PO (09:38)
[2023-03-28] MEDS: PANTOPRAZOLE 40 MG TABLET PO (09:38)
[2023-03-28] MEDS: IRON SUCROSE COMPLEX 100 MG in SODIUM CHLORIDE 0.9% IV 50 ML 220 MG IVPB (09:39)
--- NOTE | 2023-03-28 11:09 | P.PNIM_ITS ---
Progress Note: A&P Assessment and Plan (1) Pulmonary embolism: Qualifiers: Acute cor pulmonale presence: without acute cor pulmonale Chronicity: acute Pulmonary embolism type: unspecified Qualified Code(s): I26.99 - Other pulmonary embolism without acute cor pulmonale Code(s): I26.99 - Other pulmonary embolism without acute cor pulmonale Status: Acute Assessment and Plan: Outpatient CTA chest shows small bilateral segmental and subsegmental PEs with small thrombus burden. Patient was sent to the emergency room and found to be anemic. Stool was guaiac negative by ED exam. Found to be iron and B12 deficient. The patient was started on a heparin drip. He has no prior history of VTE. No recent COVID. No recent travel. No recent immobility. he may have a family history of DVTs. LE venous Dopplers negative for DVT. Echo showing EF 5 5-60% with normal diastolic function and trace valvular disease. Unprovoked PE so coagulopathy workup ordered. Continue Heparin drip until cleared for Eliquis by surgery. Care coordination consult working on securing Eliquis. (2) Anemia: Qualifiers: Anemia type: unspecified type Qualified Code(s): D64.9 - Anemia, unspecified Code(s): D64.9 - Anemia, unspecified Status: Acute Assessment and Plan: Patient noted to be anemic on admission. Hemoglobin was normal 1 year ago. He admits to rectal bleeding with bowel movements consistent hemorrhoidal bleeding. Workup reveals iron deficiency and B12 deficiency. Celiac panel pending. GI was consulted. EGD was normal. Colonoscopy showing internal rectal hemorrhoids with stigmata of bleeding. Duodenal bx pathology pending. B12 being replaced. Started on iron infusions. General surgery consulted. Discussed with GenSurg who recommended hemorrhoidal surgery this admission. Plan for surgery today (3) POLA (iron deficiency anemia): Code(s): D50.9 - Iron deficiency anemia, unspecified Status: Acute Assessment and Plan: As above. Hgb stable mostly in the 8-9 range. Follow (4) Bleeding hemorrhoids: Code(s): K64.9 - Unspecified hemorrhoids Status: Acute Assessment and Plan: As above. hgb stable. Monitor H&H closely. (5) B12 deficiency anemia: Code(s): D51.9 - Vitamin B12 deficiency anemia, unspecified Status: Acute Assessment and Plan: B12 deficiency noted. Continue to replace. (6) Alcohol abuse: Code(s): F10.10 - Alcohol abuse, uncomplicated Status: Acute Assessment and Plan: Patient was educated about the benefits of abstaining from alcohol use. CIWA score low. Continue thiamine and folate. Ativan and Librium available prn. (7) ADHD: Code(s): F90.9 - Attention-deficit hyperactivity disorder, unspecified type Status: Acute Assessment and Plan: Mood stable. Continue Adderall (8) Hypertension: Qualifiers: Hypertension type: essential hypertension Qualified Code(s): I10 - Essential (primary) hypertension Code(s): I10 - Essential (primary) hypertension Status: Acute Assessment and Plan: Patient's blood pressure was reviewed on 03/27 Blood pressure remains well controlled. Will continue current medications. (9) Chronic GERD: Code(s): K21.9 - Gastro-esophageal reflux disease without esophagitis Status: Acute Assessment and Plan: Sable. Continue with pantoprazole (10) Depression with anxiety: Code(s): F41.8 - Other specified
[2023-03-28] MEDS: ACETAMINOPHEN 325 MG TABLET 650 MG PO (11:11)
[2023-03-28 11:54] LABS: Partial Thromboplastin Time 159.3 SECONDS (22.3-36.8)
[2023-03-28 12:00] VITALS: BP 119/67
[2023-03-28 13:47] LABS: Haptoglobin 186 mg/dL (43-212)
[2023-03-28 14:00] VITALS: BP 119/67; PULSE 89; RESP 18; TEMP 36.7; O2SAT 98
--- NOTE | 2023-03-28 14:27 | PM.PNGS ---
Progress Note: A&P Assessment and Plan (1) Bleeding hemorrhoids: Code(s): K64.9 - Unspecified hemorrhoids Status: Acute Assessment and Plan: S/p excisional hemorrhoidectomy x 2, banding of internal hemorrhoids x 1. Doing well today, no bleeding. Okay from our standpoint to transition to oral anticoagulation and discharge when medically stable. Continue sitz baths PRN and after bowel movements. Continue stools softener on discharge. Will also send oxycodone for pain control that he can take with Tylenol over the counter for pain control. Follow-up with Dr. Kwan in 2 weeks in the office. Plan I have discussed the patient's case and plan of care with Dr. Kwan. Subjective Subjective Date/Time Seen: 03/28/23 14:27 Post Op day: 1 (Excisional hemorrhoidectomy x2, banding of internal hemorrhoids x1) Patient reports: flatus and no bowel movement Interval history: Patient having incisional rectal pain, but this is being controlled with the oral analgesics. He reports minimal bloody drainage on the gauze this morning that he has changed just prior to my arrival. No other complaints at this time. Exam Narrative: External visual rectal exam shows two sutures that are dry and intact with no bleeding. Edges well approximated. Objective Data Vital Signs Vital Signs: Vital Signs - 24 hr 03/27/23 15:00 03/27/23 16:47 03/27/23 17:00 Temperature 97 F L Pulse Rate 65 97 79 Respiratory Rate 20 16 14 Blood Pressure 147/81 H 129/99 H 123/72 Pulse Oximetry 100 100 100 Oxygen Delivery Room Air Simple Face Mask Simple Face Mask Oxygen Flow Rate 10 10 03/27/23 17:15 03/27/23 16:00 03/27/23 18:20 Temperature 97.5 F L Pulse Rate 88 86 Respiratory Rate 21 H 20 Blood Pressure 159/81 H 159/81 H 158/78 H Pulse Oximetry 100 100 Oxygen Delivery Room Air Oxygen Flow Rate 03/27/23 20:20 03/28/23 08:00 03/28/23 08:00 Temperature 97.5 F L Pulse Rate 97 Respiratory Rate 18 Blood Pressure 120/73 120/73 Pulse Oximetry 99 Oxygen Delivery Room Air Oxygen Flow Rate 03/28/23 14:00 Temperature 98.1 F Pulse Rate 89 Respiratory Rate 18 Blood Pressure 119/67 Pulse Oximetry 98 Oxygen Delivery Oxygen Flow Rate Intake/Output Intake/Output: Intake & Output 03/25/23 03/26/23 03/27/23 03/28/23 23:59 23:59 23:59 23:59 Intake Total 1875 1985 3130 2610 Output Total 020 741 8856 301 Balance 1525 1285 -236 0786 Meds/Results Medications: Active Medications Generic Name Dose Route Start Last Admin Trade Name Freq PRN Reason Stop Dose Admin Acetaminophen 650 mg 03/23/23 20:28 03/28/23 11:11 Acetaminophen 325 Mg Tablet PO 650 mg Q4H PRN Administration Headache Acetaminophen 650 mg 03/27/23 18:16 Acetaminophen 325 Mg Tablet PO Q6H PRN Mild Pain (1-3) or Fever Albuterol 1 puff 03/23/23 20:25 Albuterol Sulfate (*Sp) Aerosol 1 Puff INHALATION QID PRN Dyspnea Buspirone HCl 10 mg 03/24/23 09:00 03/28/23 09:38 Buspirone Hcl 10 Mg Tablet PO 10 mg DAILY REYNOLD Administration Chlordiazepoxide HCl 25 mg 03/23/23 20:39 Chlordiazepoxide (*Crx) 25 Mg Capsule PO Q6H PRN Withdrawal Cyanocobalamin 1,000 mcg 03/24/23 09:00 03/28/23 09:38 Cyanocobalamin 1,000 Mcg Tablet PO 1,000 mcg QAM REYNOLD Administration Cyanocobalamin 1,000 mcg 03/24/23 09:45 03/24/23 11:37 Cyanocobalamin Inj 1,000 Mcg/Ml Vial SUB-Q 1,000 mcg WEEKLY REYNOLD Administration Docusate Sodium 100 mg 03/28/23 09:00 03/28/23 09:38 Docusate Sodium 100 Mg Capsule PO 100 mg DAILY REYNOLD Administration Ferrous Sulfate 324 mg 03/24/23 08:10 03/28/23 09:38 Ferrous Sulfate 324 Mg Tablet PO 324 mg BIDWM REYNOLD Administration Folic Acid 1 mg 03/24/23 09:00 03/28/23 09:38 Folic Acid 1 Mg Tablet PO 1 mg DAILY REYNOLD Administration Haloperidol Lactate 2 mg 03/23/23 20:39 Haloperidol Lactate 5 Mg/Ml Vial IV PUSH Q2H
--- NOTE | 2023-03-28 14:46 | WPDANESPN ---
Anes - Prog Note Post-Op Date/Time: 03/28/23 14:46 Cardiovascular status: normal Respiratory status: normal Airway patency: baseline Mental status: baseline Post-Op hydration status: normal Vital Signs: Last Vital Signs Temp 98.1 F 03/28/23 14:00 Pulse 89 03/28/23 14:00 Resp 18 03/28/23 14:00 BP 119/67 03/28/23 14:00 Pulse Ox 98 03/28/23 14:00 O2 Del Method Room Air 03/28/23 08:00 O2 Flow Rate 10 03/27/23 17:00 Pain Score (VAS): 3 I/O: Intake & Output 03/27/23 03/28/23 03/28/23 23:59 07:59 15:59 Intake Total 1640 2250 360 Output Total 2600 301 Balance -960 1949 360 Laboratory Tests 03/27/23 07:37 03/27/23 07:37 03/23/23 03/28/23 03/28/23 13:29 04:52 11:21 Haptoglobin 186 APTT 52.2 H 159.3 H Post-procedural complaints: none Patient Feedback: Patient satisfied with anesthetic care.
--- NOTE | 2023-03-28 15:09 | PM.DS ---
DS: Admitting Diagnosis Discharge Date 03/28/23 Admitting Diagnosis Shortness of breath DS: Discharge Diagnosis Discharge Diagnosis (1) Pulmonary embolism: Qualifiers: Acute cor pulmonale presence: without acute cor pulmonale Chronicity: acute Pulmonary embolism type: unspecified Qualified Code(s): I26.99 - Other pulmonary embolism without acute cor pulmonale Code(s): I26.99 - Other pulmonary embolism without acute cor pulmonale Status: Acute Assessment and Plan: Outpatient CTA chest shows small bilateral segmental and subsegmental PEs with small thrombus burden. Patient was sent to the emergency room and found to be anemic. Stool was guaiac negative by ED exam. Found to be iron and B12 deficient. The patient was started on a heparin drip. He has no prior history of VTE. No recent COVID. No recent travel. No recent immobility. he may have a family history of DVTs. LE venous Dopplers negative for DVT. Echo showing EF 55-60% with normal diastolic function and trace valvular disease. Unprovoked PE so coagulopathy workup ordered. Continue Heparin drip until cleared for Eliquis by surgery. Care coordination consult working on securing Eliquis. (2) Anemia: Qualifiers: Anemia type: unspecified type Qualified Code(s): D64.9 - Anemia, unspecified Code(s): D64.9 - Anemia, unspecified Status: Acute Assessment and Plan: Patient noted to be anemic on admission. Hemoglobin was normal 1 year ago. He admits to rectal bleeding with bowel movements consistent hemorrhoidal bleeding. Workup reveals iron deficiency and B12 deficiency. Celiac panel pending. GI was consulted. EGD was normal. Colonoscopy showing internal rectal hemorrhoids with stigmata of bleeding. Duodenal bx pathology pending. B12 being replaced. Started on iron infusions. General surgery consulted. Discussed with GenSurg who recommended hemorrhoidal surgery this admission. Plan for surgery today (3) POLA (iron deficiency anemia): Code(s): D50.9 - Iron deficiency anemia, unspecified Status: Acute Assessment and Plan: As above. Hgb stable mostly in the 8-9 range. Follow (4) Bleeding hemorrhoids: Code(s): K64.9 - Unspecified hemorrhoids Status: Acute Assessment and Plan: As above. hgb stable. Monitor H&H closely. (5) B12 deficiency anemia: Code(s): D51.9 - Vitamin B12 deficiency anemia, unspecified Status: Acute Assessment and Plan: B12 deficiency noted. Continue to replace. (6) Alcohol abuse: Code(s): F10.10 - Alcohol abuse, uncomplicated Status: Acute Assessment and Plan: Patient was educated about the benefits of abstaining from alcohol use. CIWA score low. Continue thiamine and folate. Ativan and Librium available prn. (7) ADHD: Code(s): F90.9 - Attention-deficit hyperactivity disorder, unspecified type Status: Acute Assessment and Plan: Mood stable. Continue Adderall (8) Hypertension: Qualifiers: Hypertension type: essential hypertension Qualified Code(s): I10 - Essential (primary) hypertension Code(s): I10 - Essential (primary) hypertension Status: Acute Assessment and Plan: Patient's blood pressure was reviewed on 03/28 Blood pressure remains well controlled. Will continue current medications. (9) Chronic GERD: Code(s): K21.9 - Gastro-esophageal reflux disease without esophagitis Status: Acute Assessment and Plan: Sable. Continue with pantoprazole (10) Depression with anxiety: Code(s): F41.8 - Other specified anxiety disorders Status: Acute Assessment and Plan: Mood stable. Continue with BuSpar and sertraline. DS: Summary Hospital Course Hospital Course: 42yo male with depression, alcohol abuse, tobacco abuse and HTN here for PE discovered by outpatient CTA chest. Found to be ane
[2023-03-31 04:46] LABS: Anti Cardio Antibody IgM <2.0 MPL-U/mL (<20.0); Anti Cardiolipin Antibody IgA <2.0 APL-U/mL (<20.0); Anti Cardiolipin Antibody IgG <2.0 GPL-U/mL (<20.0)
[2023-03-31 12:03] LABS: Protein C Antigen 98 % normal (70-140)
[2023-04-02 11:58] LABS: Factor V (Leiden) Mutation NEGATIVE
== END 2023-03-28 16:14 | disposition home or self-care (01) | DRG 226 ==
LOC: ANHED 13:22 → ANHIMU 14:08 → ANH2MED 03-25 15:58
PROVIDERS: Emergency Medicine; Internal Medicine; Internal Medicine Gastroenterology; Nurse Practitioner; Surgery; Admitting Provider Internal Medicine; Emergency Provider Physician Assistant; PCP Internal Medicine; Visit Provider Student in an Organized Health Care Education/Training Program
PROC: 0DJ08ZZ Inspection of Upper Intestinal Tract, Via Natural or Artificial Opening Endoscopic (ICD-10-PCS; CPT 43235; principal; 2023-03-25 08:00)
PROC: 06BY3ZC Excision of Hemorrhoidal Plexus, Percutaneous Approach (ICD-10-PCS; principal; 2023-03-27 15:00)
DX: K64.8 Other hemorrhoids (principal); I26.94 Multiple subsegmental thrombotic pulmonary emboli without acute cor pulmonale; D51.9 Vitamin B12 deficiency anemia, unspecified; I26.99 Other pulmonary embolism without acute cor pulmonale; D50.9 Iron deficiency anemia, unspecified; E78.00 Pure hypercholesterolemia, unspecified; F10.10 Alcohol abuse, uncomplicated; F17.210 Nicotine dependence, cigarettes, uncomplicated; F41.8 Other specified anxiety disorders; F90.9 Attention-deficit hyperactivity disorder, unspecified type; I10 Essential (primary) hypertension; K21.9 Gastro-esophageal reflux disease without esophagitis; N52.8 Other male erectile dysfunction
CPT/HCPCS: 36415; 71275; 80048; 80053; 81240; 81241; 82274; 82607; 82728; 82746; 82948; 83010; 83540; 83550; 83605; 83615; 83735; 84100; 84439; 84443; 84466; 84480; 84484; 85014; 85018; 85025; 85027; 85302; 85303; 85610; 85730; 86038; 86147; 86850; 86900; 86901; 88304; 88305; 93005; 93970; 96365; 96366; 96372; 96374; 96375; 99285; A9270; C8929; G0378; G0379; J0330; J0690; J1100; J1170; J1644; J1756; J2001; J2060; J2250; J2405; J2704; J3010; J3420; J7120; Q9957; Q9967

== ENCOUNTER 2023-07-17 10:31 | Outpatient (CLI) | payer OTHER, SELFPAY ==
[2023-07-17 16:40] LABS: Basophils Percent Auto 0.6 % (0.2-1.2); Eosinophils Absolute Auto 0.1 K/mm3 (0-0.3); Eosinophils Percent Auto 1.7 % (0-4.4); Hematocrit 42.1 % (42.0-52.0); Hemoglobin 14.2 g/dL (14.0-18.0); Immature Granulocyte Absolute 0.06 K/mm3 (0.00-0.031); Immature Granulocyte Percent A 0.8 % (0-0.5); Immature Reticulocyte Fraction 19.2 % (3.0-15.9); Lymphocytes Absolute Auto 1.22 K/mm3 (0.9-3.2); Lymphocytes Percent Auto 16.8 % (18.3-44.2); Mean Corpuscular HGB Conc 33.7 g/dl (32-36); Mean Corpuscular Hemoglobin 32.3 pg (26-34); Mean Corpuscular Volume 95.7 fl (80-100); Mean Platelet Volume 9.9 fl (7.4-10.4); Monocytes Absolute Auto 0.5 K/mm3 (0.1-0.6); Monocytes Percent Auto 6.6 % (2.6-8.5); Neutrophils Absolute Auto 5.3 K/mm3 (1.3-6.7); Neutrophils Percent Auto 73.5 % (45.5-73.1); Platelet Count Result 181 k/mm3 (150-375); Red Cell Distribution Width 13.5 % (11.5-14.5); Reticulocyte Hemoglobin Conten 35.9 pg (28.2-35.7); Reticulocyte Percent 2.88 % (0.7-4.3); Reticulocytes Absolute 0.13 M/mm3 (0.02-0.1); White Blood Count 7.3 K/mm3 (4.5-10.0)
[2023-07-17 18:40] LABS: Folic Acid > 20.0 ng/mL (2.76->20)
== END 2023-07-17 10:32 | disposition home or self-care (01) ==
LOC: ANHGOSHLAB 10:33
PROVIDERS: PCP Internal Medicine; Visit Provider Internal Medicine
DX: D50.9 Iron deficiency anemia, unspecified (principal)
CPT/HCPCS: 36415; 82607; 82728; 82746; 85025; 85046

== ENCOUNTER 2023-07-24 10:31 | Outpatient (CLI) | payer OTHER, SELFPAY ==
[2023-07-24 12:54] LABS: D Dimer < 0.27 ug/mL (<0.48)
== END 2023-07-24 10:32 | disposition home or self-care (01) ==
LOC: ANHGOSHLAB 10:33
PROVIDERS: PCP Internal Medicine; Visit Provider Internal Medicine
DX: D50.9 Iron deficiency anemia, unspecified (principal)
CPT/HCPCS: 36415; 85380

== ENCOUNTER 2023-08-24 18:11 | Emergency (ER) | payer OTHER, SELFPAY ==
[2023-08-24 18:14] VITALS: BP 137/91; PULSE 114; RESP 16; TEMP 36.8; O2SAT 97
[2023-08-24 18:30] LABS: Basophils Percent Auto 0.5 % (0.2-1.2); Eosinophils Absolute Auto 0.1 K/mm3 (0-0.3); Eosinophils Percent Auto 1.7 % (0-4.4); Hematocrit 39.6 % (42.0-52.0); Hemoglobin 13.9 g/dL (14.0-18.0); Immature Granulocyte Absolute 0.03 K/mm3 (0.00-0.031); Immature Granulocyte Percent A 0.4 % (0-0.5); Lymphocytes Absolute Auto 1.78 K/mm3 (0.9-3.2); Mean Corpuscular HGB Conc 35.1 g/dl (32-36); Mean Corpuscular Hemoglobin 33.2 pg (26-34); Mean Corpuscular Volume 94.5 fl (80-100); Mean Platelet Volume 9.1 fl (7.4-10.4); Monocytes Absolute Auto 0.6 K/mm3 (0.1-0.6); Monocytes Percent Auto 7.2 % (2.6-8.5); Neutrophils Absolute Auto 5.2 K/mm3 (1.3-6.7); Neutrophils Percent Auto 67.2 % (45.5-73.1); Platelet Count Result 175 k/mm3 (150-375); Red Blood Count 4.19 M/mm3 (4.6-6.20); Red Cell Distribution Width 13.2 % (11.5-14.5); White Blood Count 7.7 K/mm3 (4.5-10.0)
--- NOTE | 2023-08-24 18:35 | PC.NURSE ---
Patient drinking soda in the waiting room. patient advised to not eat or drink anything while in the waiting room with abdominal pain.
[2023-08-24 18:45] LABS: Alanine Aminotransferase 24 U/L (6-50); Albumin Level 4.4 g/dL (3.5-5.1); Alkaline Phosphatase 73 U/L (38-126); Anion Gap 9 mmol/L (8-16); Aspartate Amino Transferase 31 U/L (17-59); Bilirubin,Total 0.7 mg/dL (0.2-1.3); Blood Urea Nitrogen 13 mg/dL (9-20); Calcium 9.4 mg/dL (8.4-10.2); Carbon Dioxide 26 mmol/L (22-30); Chloride 101 mmol/L (98-107); Estimated CRCL calculation 120 ml/min; Estimated Glomerular Filt Rate > 60; Glucose 101 mg/dL (65-110); Lipase 230 U/L (23-300); Potassium 3.5 mmol/L (3.4-5.0); Sodium 136 mmol/L (137-145)
[2023-08-24 18:59] VITALS: BP 137/91; PULSE 96; RESP 17; O2SAT 97
[2023-08-24 19:00] LABS: Appearance Urine Clear (Clear); Bilirubin Urine Negative (Negative); Blood Urine Negative (Negative); Color Urine Yellow (Yellow); Glucose Urine UA Negative (Negative); Ketones Urine Negative (Negative); Leukocyte Esterase Ur Negative LEU/UL (Negative); Nitrate Urine Negative (Negative); Protein Urine Negative (Negative); Specific Grav Ur 1.003 (1.001-1.035); Urobilinogen Urine 0.2 mg/dL (<2.0); pH Urine 6.5 (5.0-9.0)
[2023-08-24 19:01] VITALS: BP 135/91; PULSE 93; RESP 20; O2SAT 98
[2023-08-24 19:08] LABS: Add Urine Microscopic? NO
[2023-08-24] MEDS: KETOROLAC (*BKC) 60 MG/2 ML VIAL IM (19:33)
--- NOTE | 2023-08-24 20:02 | ED.GENADULT ---
HPI - General Adult General Chief complaint: Abdominal Pain Stated complaint: right side pain Time Seen by Provider: 08/24/23 19:06 History of Present Illness HPI narrative: Patient is a 43-year-old male who presents ER with pain to the right lower back. Began around 1 AM. Continued when he woke up later. Occasional radiation around to his upper abdomen. No association with eating/drinking. No urinary frequency urgency or dysuria. No history of kidney stones. Patient has increased discomfort with bending and twisting. He is taking aspirin with minimal relief. Patient concerned he may have an appendicitis. He is supposed to bury his recently tomorrow and is nervous something serious could be happening. Related Data Home Medications Medication Instructions Recorded Confirmed dextroamphetamine-amphetamine 10 10 mg PO DAILY 09/21/20 04/10/23 mg tablet (Adderall) buspirone 10 mg tablet 10 mg PO DAILY 03/22/23 04/10/23 dextroamphetamine-amphetamine 15 15 mg PO DAILY 04/10/23 04/10/23 mg tablet (Adderall) ferrous sulfate 325 mg (65 mg 325 mg PO DAILY 07/17/23 iron) tablet mecobalamin (vitamin B12) 2,500 mcg PO 07/17/23 mcg chewable tablet multivitamin 1 tablet PO DAILY 07/17/23 Allergies Allergy/AdvReac Type Severity Reaction Status Date / Time No Known Allergies Allergy Verified 08/24/23 18:11 Review of Systems Review of Systems: All systems reviewed & are unremarkable except as noted in HPI and below Constitutional: Constitutional: Denies chills and Denies fever(s) ENT: Denies nasal congestion and Denies sore throat Cardiovascular: Cardiovascular: Denies chest pain, Denies rapid heart rate and Denies radiating jaw, neck or arm pain Respiratory: Respiratory: Denies cough, Denies dyspnea and Denies wheezing Gastrointestinal: Gastrointestinal: Denies abdominal pain, Denies nausea and Denies vomiting Musculoskeletal: Musculoskeletal: Reports back pain, Denies arthralgias and Denies muscle cramps PMFSH Past Medical History Medical History (Updated 08/24/23 @ 20:03 by Renan Galvan MD) Chronic GERD Depression with anxiety Generalized hyperhidrosis Hematochezia Hypercholesterolemia Hypertension Surgical History Surgical History H/O removal of cyst 2005 S/P hemorrhoidectomy Family History Family History Mother Patient's mother is in good health Father Patient's father is in good health Grandparent Breast cancer Lung cancer Social History Social History Social History: He lives with his kids. he is single and has 4 kids. he works at [employer] . he uses marijuana. He drinks 2 mixed drinks of alcohol and 5 beers a night. He denies any durable power claim attorney for healthcare. Code status full code Smoking packs per day: 1 Smoking cigarettes per day: 20.0 Smoking status: Current every day smoker Alcohol intake: current Drinks per week: 30 Alcohol use details: 7 drinks/day Substance use: current Substance use type: marijuana Other substance usage details: 10 bowls a day Lack of Transportation: No Lack of Food: Never True Current Housing: I Have Housing Concerned About Future Housing: No Difficulty Paying Gas/Electric Bills: No Difficulty Paying for Meds: No Currently Unemployed: No Education: High School Diploma/GED Difficulty w/ Childcare or Family Care: No Spiritual care concerns: No Exam Narrative: GENERAL: Well-appearing, well-nourished, and in no acute distress. HEAD: Normocephalic, atraumatic. ENT: Mucous membranes moist. CHEST: Clear to auscultation. No respiratory distress. HEART: Regular rate and rhythm. Normal peripheral pulses. ABDOMEN: Soft, nontender, nondistended. Back: No reproducible midline or paraspinal muscle tenderness to
[2023-08-24 20:11] VITALS: BP 137/90; PULSE 73; RESP 17; O2SAT 98
== END 2023-08-24 20:12 | disposition home or self-care (01) ==
PROVIDERS: Emergency Provider Emergency Medicine; PCP Internal Medicine
DX: M54.50 Low back pain, unspecified (principal); I10 Essential (primary) hypertension; F17.210 Nicotine dependence, cigarettes, uncomplicated
CPT/HCPCS: 36415; 80053; 81003; 83690; 85025; 96372; 99283; J1885

== ENCOUNTER 2023-09-25 12:38 | Outpatient (CLI) | payer OTHER, SELFPAY ==
[2023-09-25 13:04] LABS: Basophils Percent Auto 0.3 % (0.2-1.2); Eosinophils Absolute Auto 0.1 K/mm3 (0-0.3); Eosinophils Percent Auto 1.1 % (0-4.4); Hematocrit 44.3 % (42.0-52.0); Hemoglobin 15.7 g/dL (14.0-18.0); Immature Granulocyte Absolute 0.03 K/mm3 (0.00-0.031); Immature Granulocyte Percent A 0.3 % (0-0.5); Lymphocytes Absolute Auto 1.46 K/mm3 (0.9-3.2); Lymphocytes Percent Auto 16.7 % (18.3-44.2); Mean Corpuscular HGB Conc 35.4 g/dl (32-36); Mean Corpuscular Hemoglobin 33.3 pg (26-34); Mean Corpuscular Volume 93.9 fl (80-100); Monocytes Absolute Auto 0.5 K/mm3 (0.1-0.6); Neutrophils Absolute Auto 6.6 K/mm3 (1.3-6.7); Neutrophils Percent Auto 75.6 % (45.5-73.1); Platelet Count Result 180 k/mm3 (150-375); Red Blood Count 4.72 M/mm3 (4.6-6.20); Red Cell Distribution Width 12.7 % (11.5-14.5); White Blood Count 8.7 K/mm3 (4.5-10.0)
[2023-09-25 14:00] LABS: Alanine Aminotransferase 29 U/L (6-50); Albumin Level 4.7 g/dL (3.5-5.1); Alkaline Phosphatase 83 U/L (38-126); Anion Gap 13 mmol/L (8-16); Aspartate Amino Transferase 39 U/L (17-59); Bilirubin,Total 0.7 mg/dL (0.2-1.3); Blood Urea Nitrogen 18 mg/dL (9-20); Calcium 9.7 mg/dL (8.4-10.2); Carbon Dioxide 21 mmol/L (22-30); Chloride 103 mmol/L (98-107); Estimated Glomerular Filt Rate > 60; Glucose 107 mg/dL (65-110); Sodium 137 mmol/L (137-145)
[2023-09-25 16:28] LABS: Iron 269 ug/dL (49-181)
[2023-09-25 16:37] LABS: Percent Iron Saturation 75 % (20-50)
[2023-09-28 04:54] LABS: Methylmalonic Acid 109 nmol/L (87-318)
[2023-09-28 13:04] LABS: Homocysteine 28.3 umol/L (<11.4)
[2023-09-29 18:41] LABS: Soluble Transferrin Receptor 1.24 mg/L (0.76-1.76)
[2023-10-01 15:42] LABS: Factor V (Leiden) Mutation NEGATIVE
== END 2023-09-25 12:39 | disposition home or self-care (01) ==
PROVIDERS: Nurse Practitioner Family; PCP Internal Medicine; Visit Provider Internal Medicine Hematology & Oncology
DX: D68.69 Other thrombophilia (principal); D64.9 Anemia, unspecified
CPT/HCPCS: 36415; 80053; 81240; 81241; 82607; 82728; 82746; 83090; 83540; 83550; 83921; 84238; 85025; 85303; 85306; 86146

== ENCOUNTER 2023-11-13 09:36 | Outpatient (CLI) | payer OTHER, SELFPAY ==
[2023-11-13 10:58] LABS: D Dimer < 0.27 ug/mL (<0.48)
== END 2023-11-13 09:37 | disposition home or self-care (01) ==
LOC: ANHLAB 09:37
PROVIDERS: PCP Internal Medicine; Visit Provider Internal Medicine
DX: R06.09 Other forms of dyspnea (principal); Z86.711 Personal history of pulmonary embolism
CPT/HCPCS: 36415; 85380

== ENCOUNTER 2024-01-18 08:54 | Outpatient (CLI) | payer OTHER, SELFPAY ==
[2024-01-18 09:09] LABS: Basophils Percent Auto 0.4 % (0.2-1.2); Eosinophils Absolute Auto 0.1 K/mm3 (0-0.3); Eosinophils Percent Auto 1.6 % (0-4.4); Hematocrit 41.4 % (42.0-52.0); Hemoglobin 14.2 g/dL (14.0-18.0); Immature Granulocyte Absolute 0.03 K/mm3 (0.00-0.031); Immature Granulocyte Percent A 0.4 % (0-0.5); Lymphocytes Absolute Auto 1.56 K/mm3 (0.9-3.2); Lymphocytes Percent Auto 18.2 % (18.3-44.2); Mean Corpuscular HGB Conc 34.3 g/dl (32-36); Mean Corpuscular Hemoglobin 32.3 pg (26-34); Mean Corpuscular Volume 94.1 fl (80-100); Mean Platelet Volume 9.4 fl (7.4-10.4); Monocytes Absolute Auto 0.6 K/mm3 (0.1-0.6); Monocytes Percent Auto 6.5 % (2.6-8.5); Neutrophils Absolute Auto 6.2 K/mm3 (1.3-6.7); Neutrophils Percent Auto 72.9 % (45.5-73.1); Platelet Count Result 144 k/mm3 (150-375); White Blood Count 8.6 K/mm3 (4.5-10.0)
[2024-01-18 10:49] LABS: Iron 90 ug/dL (49-181)
[2024-01-18 10:58] LABS: Percent Iron Saturation 21 % (20-50)
[2024-01-22 21:37] LABS: Homocysteine 17.6 umol/L (<11.4)
== END 2024-01-18 08:55 | disposition home or self-care (01) ==
LOC: ANHLAB 08:56
PROVIDERS: PCP Internal Medicine; Visit Provider Internal Medicine Hematology & Oncology
DX: D68.69 Other thrombophilia (principal); D64.9 Anemia, unspecified
CPT/HCPCS: 36415; 81291; 82728; 83090; 83540; 83550; 85025

== ENCOUNTER 2024-07-10 13:43 | Outpatient (CLI) | payer OTHER, SELFPAY | END 2024-07-10 13:44 | disposition home or self-care (01) | PROVIDERS: PCP Internal Medicine; Visit Provider Internal Medicine | DX: M25.561 Pain in right knee (principal); M25.562 Pain in left knee | CPT/HCPCS: 73564 ==

== ENCOUNTER 2024-08-25 09:35 | Outpatient (CLI) | payer OTHER, SELFPAY ==
[2024-08-25 14:19] LABS: Basophils Percent Auto 0.5 % (0.2-1.2); Eosinophils Absolute Auto 0.1 K/mm3 (0-0.3); Eosinophils Percent Auto 1.9 % (0-4.4); Hematocrit 45.5 % (42.0-52.0); Hemoglobin 15.4 g/dL (14.0-18.0); Immature Granulocyte Absolute 0.03 K/mm3 (0.00-0.031); Immature Granulocyte Percent A 0.5 % (0-0.5); Lymphocytes Percent Auto 24.2 % (18.3-44.2); Mean Corpuscular HGB Conc 33.8 g/dl (32-36); Mean Corpuscular Hemoglobin 31.9 pg (26-34); Mean Corpuscular Volume 94.2 fl (80-100); Mean Platelet Volume 10.1 fl (7.4-10.4); Monocytes Absolute Auto 0.4 K/mm3 (0.1-0.6); Monocytes Percent Auto 6.9 % (2.6-8.5); Neutrophils Absolute Auto 3.8 K/mm3 (1.3-6.7); Platelet Count Result 181 k/mm3 (150-375); Red Blood Count 4.83 M/mm3 (4.6-6.20); Red Cell Distribution Width 12.5 % (11.5-14.5); White Blood Count 5.8 K/mm3 (4.5-10.0)
[2024-08-25 14:58] LABS: Vitamin D 25 Hydroxy 38.5 ng/mL
[2024-08-25 15:21] LABS: Alanine Aminotransferase 29 U/L (6-50); Albumin Level 4.9 g/dL (3.5-5.1); Alkaline Phosphatase 72 U/L (38-126); Anion Gap 11 mmol/L (4-12); Aspartate Amino Transferase 50 U/L (17-59); Bilirubin,Total 0.4 mg/dL (0.2-1.3); Blood Urea Nitrogen 18 mg/dL (9-20); Carbon Dioxide 24 mmol/L (22-30); Chloride 104 mmol/L (98-107); Cholesterol 254 mg/dL (0-200); Estimated Glomerular Filt Rate > 60; Glucose 105 mg/dL (65-110); HDL Direct 64 mg/dL; Potassium 4.2 mmol/L (3.4-5.0); Sodium 139 mmol/L (137-145); Triglycerides 507 mg/dL (<150)
[2024-08-25 15:33] LABS: LDL Cholesterol Direct 93 mg/dL
[2024-08-25 16:26] LABS: Folic Acid 13.4 ng/mL (2.76->20); Vitamin B12 > 1000.0 pg/mL (239-931)
[2024-09-01 16:29] LABS: Apolipoprotein B 121 mg/dL
== END 2024-08-25 09:36 | disposition home or self-care (01) ==
LOC: ANHGOSHLAB 09:37
PROVIDERS: PCP Internal Medicine; Visit Provider Internal Medicine
DX: D51.9 Vitamin B12 deficiency anemia, unspecified (principal); E55.9 Vitamin D deficiency, unspecified; E78.00 Pure hypercholesterolemia, unspecified; I10 Essential (primary) hypertension; Z86.711 Personal history of pulmonary embolism
CPT/HCPCS: 36415; 80053; 80061; 82172; 82306; 82607; 82728; 82746; 85025

== ENCOUNTER 2024-09-16 11:02 | Emergency (ER) | payer OTHER, SELFPAY ==
--- NOTE | ~2024-09-16 | XR_ITS ---
3 VIEWS LUMBAR SPINE Ordering provider: Renan Galvan MD History: . RT SIDE BACK PAIN AFTER EXERCISE 1 WK AGO . Comparison: None. FINDINGS: VERTEBRAL BODIES:Anterior loss of height is seen in T12, L1 and L2 which is most likely chronic. No visible fracture or subluxation. Reversal of lordosis. Degenerative changes of the spine. DISK SPACES: Narrowing of the disc L2-L3 and L3-L4. SOFT TISSUES: Normal. Bilateral sacroiliacs. IMPRESSION: No acute osseous abnormality lumbar spine. Multilevel degenerative disc disease. Reviewed, dictated and finalized at location A. [facility] [employer]
[2024-09-16 11:03] VITALS: BP 170/97; PULSE 98; RESP 20; TEMP 36.4; O2SAT 100
[2024-09-16] MEDS: KETOROLAC (*BKC) 60 MG/2 ML VIAL IM (12:54)
--- NOTE | 2024-09-16 13:32 | ED_ITS ---
HPI - Back Pain/Injury General Chief Complaint: Back Pain/Injury Stated Complaint: back pain Time Seen by Provider: 09/16/24 12:02 History of Present Illness HPI Narrative: patient is a 44-year-old male who presents ER with low back pain right-sided at the SI region. Reports it began 1 day after wearing ankle weights for exercise. Achiness radiating into the buttock. No numbness or tingling in the leg or groin. No difficulty with urination / defecation. He has been taking ibuprofen aspirin without improvement. Has history of chronic back issues. Related Data Home Medications Medication Instructions Recorded Confirmed dextroamphetamine-amphetamine 10 10 mg PO DAILY 09/21/20 08/25/24 mg tablet (Adderall) buspirone 10 mg tablet 10 mg PO DAILY 03/22/23 08/25/24 dextroamphetamine-amphetamine 15 15 mg PO DAILY 04/10/23 08/25/24 mg tablet (Adderall) mecobalamin (vitamin B12) 2,500 mcg PO 07/17/23 08/25/24 mcg chewable tablet multivitamin 1 tablet PO DAILY 07/17/23 08/25/24 acetaminophen 325 mg tablet 325 mg PO Q6H PRN 11/13/23 08/25/24 ferrous sulfate 325 mg (65 mg 325 mg PO DAILY 09/08/24 iron) tablet Allergies Allergy/AdvReac Type Severity Reaction Status Date / Time No Known Allergies Allergy Verified 08/25/24 08:57 Review of Systems Constitutional: Constitutional: Reports no additional constitutional complaints Cardiovascular: Cardiovascular: Reports no additional cardiovascular complaints Respiratory: Respiratory: Reports no additional respiratory complaints Musculoskeletal: Musculoskeletal: Reports back pain, Denies joint swelling and Denies muscle cramps Neurologic: Reports system reviewed and no additional complaints, except as documented [facility], [facility] Past Medical History Medical History Chronic GERD Depression with anxiety Generalized hyperhidrosis Hematochezia Hypercholesterolemia Hypertension Surgical History Surgical History H/O removal of cyst 2006 S/P hemorrhoidectomy Family History Family History Mother Patient's mother is in good health Father Patient's father is in good health Grandparent Breast cancer Lung cancer Social History Social History Social History: He lives with his kids. he is single and has 4 kids. he works at [employer] . he uses marijuana. He drinks 2 mixed drinks of alcohol and 5 beers a night. 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 Code status full code Smoking packs per day: 1 Smoking cigarettes per day: 20.0 Smoking status: Former smoker Smoking end date: 03/31/24 Alcohol intake: current Drinks per week: 30 Alcohol use details: 12-15 drinks per week Substance use: current Substance use type: marijuana Other substance usage details: 10 bowls a day Do You Feel Safe in your Home?: Yes Lack of Transportation: No Lack of Food: Never True Current Housing: I Have Housing Concerned About Future Housing: No Difficulty Paying Gas/Electric Bills: No Difficulty Paying for Meds: No Currently Unemployed: No Education: High School Diploma/GED Difficulty w/ Childcare or Family Care: No Spiritual care concerns: No Exam Narrative: GENERAL: Well-appearing, well-nourished, and in no acute distress. HEAD: Normocephalic, atraumatic. ENT: Mucous membranes moist. CHEST: Clear to auscultation. No respiratory distress. HEART: Regular rate and rhythm. Normal peripheral pulses. BACK: No midline tenderness the T/L-spine. There is tenderness at the right SI region without deformity. EXTREMITIES: Normal range of motion. No edema. SKIN: Warm, dry, no rash. NEURO: Alert and oriented x3. PSYCH: Normal mood and affect. Course Course Emergency Course: Will switch to Medrol Dosepak and muscle relaxers. Recommend follow-up with PCP for further treatment evaluation. Vital Signs Vital signs: Vital Signs Temperature 97.6 F 09/16/24 11:03 Pulse Rate 98 09/16/24 11:03 Respiratory Rate 20 09/16/24 11:03 Blood Pressure 170/97 H 09/16/24 11:03 Pulse Oximetry 100 09/16/24 11:03 Oxygen Delivery Room Air 09/16/24 11:03 Temperature 97.6 F 09/16/24 11:03 Pulse Rate 98 09/16/24 11:03 Respiratory Rate 20 09/16/24 11:03 Blood Pressure 170/97 H 09/16/24 11:03 Pulse Oximetry 100 09/16/24 11:03 Oxygen Delivery Room Air 09/16/24 11:03 MDM - Back Pain/Injury Imaging Data Radiologist's impression: ITS Impressions Lumbar Spine X-Ray 09/16/24 13:13 IMPRESSION: No acute osseous abnormality lumbar spine. Multilevel degenerative disc disease. Discharge Plan Discharge Clinical Impression: Sacroiliitis Patient Disposition: Home, Self-Care Condition: Stable Instructions: Sacroiliitis (ED), Lower Back Exercises (ED) Additional Instructions: Please return to the emergency department if you develop severe pain that is not controlled by pain medications or if you are unable to walk because of pain or weakness. Return to the emergency department immediately if you develop fevers, loss of bowel or bladder control (dribbling of urine or having accidents you wouldn't normally have), inability to urinate, numbness of your genital or anal area, or weakness/numbness of your legs or arms as these could all be signs of a serious medical emergency. Prescriptions: New methylprednisolone [Medrol (Christiano)] 4 mg tablets,dose pack See Rx Instructions .ROUTE .COMPLEX Qty: 21 0RF Rx Instructions: for 6 days cyclobenzaprine 10 mg tablet 10 mg PO TID PRN (Reason: muscle spasm) Qty: 20 0RF No Action buspirone 10 mg tablet 10 mg PO DAILY multivitamin Tablet 1 tablet PO DAILY mecobalamin (vitamin B12) 2,500 mcg tablet,chewable PO acetaminophen 325 mg tablet 325 mg PO Q6H PRN amlodipine 2.5 mg tablet 2.5 mg PO DAILY Qty: 30 3RF dextroamphetamine-amphetamine [Adderall] 10 mg tablet 10 mg PO DAILY Rx Instructions: Take 15mg in AM and 10 in PM dextroamphetamine-amphetamine [Adderall] 15 mg tablet 15 mg PO DAILY sildenafil 50 mg tablet 50 mg PO DAILY PRN (Reason: sexual activity) Qty: 30 3RF Rx Instructions: administer 30 minutes to 4 hours before activity. Do not exceed 100 mg in a 24 hour period. losartan-hydrochlorothiazide 100-12.5 mg tablet 12.5 - 100 tablet PO DAILY Qty: 90 1RF Rx Instructions: dose 100 - 12.5 sertraline 100 mg tablet 100 mg PO DAILY Qty: 90 1RF ferrous sulfate 325 mg (65 mg iron) tablet 325 mg PO DAILY famotidine 40 mg tablet See Rx Instructions .ROUTE .COMPLEX Qty: 90 1RF Dose Instruction: TAKE 1 TABLET BY MOUTH EVERY DAY AT BEDTIME Rx Instructions: TAKE 1 TABLET BY MOUTH EVERY DAY AT BEDTIME Follow-up/Referrals: Carl Johnson, [Primary Care Provider] - 1 Week
[2024-09-16 13:45] VITALS: BP 129/84; PULSE 89; RESP 14; O2SAT 99
== END 2024-09-16 13:48 | disposition home or self-care (01) ==
PROVIDERS: Emergency Provider Emergency Medicine; PCP Internal Medicine
DX: M46.1 Sacroiliitis, not elsewhere classified (principal); I10 Essential (primary) hypertension; E78.00 Pure hypercholesterolemia, unspecified; K21.9 Gastro-esophageal reflux disease without esophagitis; F41.8 Other specified anxiety disorders; Z87.891 Personal history of nicotine dependence; Z79.899 Other long term (current) drug therapy
CPT/HCPCS: 72100; 96372; 99283; J1885

== ENCOUNTER 2024-09-17 08:50 | Outpatient (CLI) | payer OTHER, SELFPAY ==
[2024-09-17 15:46] LABS: Cholesterol 264 mg/dL (0-200); HDL Direct 90 mg/dL; Triglycerides 350 mg/dL (<150)
[2024-09-17 15:56] LABS: LDL Cholesterol Direct 118 mg/dL
== END 2024-09-17 08:51 | disposition home or self-care (01) ==
LOC: ANHGOSHLAB 08:52
PROVIDERS: PCP Internal Medicine; Visit Provider Internal Medicine
DX: E78.5 Hyperlipidemia, unspecified (principal)
CPT/HCPCS: 36415; 80061; 82172